=== PATIENT | male | born 1975 | race Caucasian/White ===

== ENCOUNTER 2022-12-08 10:30 | Emergency (ER) | payer MEDICAID, OTHER, SELFPAY ==
[2022-12-08 10:41] VITALS: BP 137/76; PULSE 61; RESP 15; TEMP 36.6; O2SAT 99; BMI 27.5
--- NOTE | 2022-12-08 11:18 | ED_ITS ---
HPI - General Adult General Chief complaint: Wound/Laceration Stated complaint: vein burst Time Seen by Provider: 12/08/22 10:45 Source: patient and RN notes reviewed Mode of arrival: ambulatory Limitations: no limitations History of Present Illness HPI narrative: This is a 47-year-old male, with a past medical history of hypertension, presenting to the emergency department for evaluation of left lower leg with r ecurrent bleeding without trauma. Patient states that he has had problems with this for many months. Patient states that this morning while he was bathing the vein ?burst open? and his leg started bleeding. He applied pressure to this area and the bleeding has since resolved. He states that he has been seen in the emergency department multiple times for the same issue however has been told that everything is okay and has been discharged home and the bleeding reoccurs. Patient has been seen by a vascular surgeon for ?bumps on his legs, denies having problems with varicose veins to his knowledge. Denies any fevers, chills. Denies lightheadedness, dizziness, chest pain or shortness of breath. Denies taking any medications at home to treat his current symptoms. No other complaints or concerns at this time. complaint: Leg wound Onset (ago): hour(s) Location: lower extremity Radiation: non-radiation Severity: mild Pain Consistency: constant Relieving factors: none Exacerbating factors: none Associated symptoms: denies other symptoms Treatments prior to arrival: none Related Data Allergies Allergy/AdvReac Type Severity Reaction Status Date / Time No Known Allergies Allergy Verified 12/08/22 10:40 Review of Systems Review of Systems: Yes all other systems are reviewed and are negative PMFSH Social History Social History Advance Directives: No Advance Directives Information Provided: No Physical Exam ED Vital Signs: Vital Signs - 24 hr 12/08/22 10:41 Temperature 98 F Pulse Rate 61 Respiratory Rate 15 Blood Pressure 137/76 Pulse Oximetry 99 Oxygen Delivery Method Room Air BMI result Body Mass Index 27.5 Const Other: General: Awake, alert, and oriented X3. No acute distress. HEENT: Normal inspection CVS: Normal heart rate and rhythm. Pulses normal. Respiratory: No respiratory distress Skin: Warm, dry, no rashes noted to exposed skin. Normal skin color. Normal skin turgor. Extremities: Left anterior boland with 1 mm eschar noted overlying varicose vein. Area is nontender, no active bleeding or drainage. No surrounding erythema or edema. Scattered multiple varicose veins noted to lower extremities. Neuro: Oriented X 3. No motor deficit. No sensory deficit. Course Reevaluation(s) Reevaluation #1: Closed wound using Dermabond and Steri-Strips. Patient given referral to vascular surgeon. Time: 12:15 Medical Decision Making Medical Decision Making MDM Narrative: 47-year-old male presenting to the emergency department for complaints of rupturing varicose veins for many months. On arrival, wound is not bleeding, ulceration noted, with varicose vein surrounding region. Reinforce skin with Dermabond and Steri-Strips after cleansing with Betadine and saline. Patient updated tetanus department today. Given good wound care instructions, advised to call vascular surgeon today for follow-up. Patient understands and agrees with plan. Patient stable for discharge. Differential Diagnosis Differential Diagnoses: The differential diagnosis associated with the presentation includes Varicose veins, laceration, contusion, abrasion, insect bite Discharge Plan Discharge Clinical Impression: Varicose vein of leg Patient Disposition: Home, Self-Care Instructions: Skin Adhesive Care (ED) Additional Instructions: You have varicose veins. One of these varicose veins was scraped causing you to bleed today. We closed this wound using skin adhesive and Steri-Strips. Do not pick at wound or liquid bandage or Steri-Strips. This will fall off on its own. We also gave you your tetanus shot today. Please watch for any signs of infection including but not limited to fevers, chills, increased redness or swelling. I am also referring you to a vascular surgeon. Call today to make an appointment. Any new or worsening symptoms occur please return for re-evaluation. Tienes venas varicosas. Shameka de estas venas varicosas fue raspada y te hizo sangrar hoy. Cerramos esta herida con adhesivo cut?sridhar y Steri-Strips. No toque la herida, el vendaje l?quido o las Steri-Strips. [place] se caer? solo. Tambi?n le dimos heart vacuna contra el t?tanos hoy. Est? atento a cualquier signo de infecci?n, incluidos, entre otros, fiebre, escalofr?os, aumento del enrojecimiento o hinchaz?n. Tambi?n lo estoy refiriendo a un cirujano vascular. Llame hoy para hacer shameka sammy. Si se presentan s?ntomas nuevos o que empeoran, regrese para shameka reevaluaci?n. Referrals: [facility] Vascular Services [Provider Group]
[2022-12-08] MEDS: Diphth,Pertus(ACell),Tet Adult 0.5 ML SYRINGE IM (12:30)
[2022-12-08 12:38] VITALS: BP 125/97; PULSE 54; RESP 16; O2SAT 100
== END 2022-12-08 12:41 | disposition home or self-care (01) ==
PROVIDERS: Emergency Provider Emergency Medicine
DX: I83.892 Varicose veins of left lower extremity with other complications (principal); M79.662 Pain in left lower leg
CPT/HCPCS: 12001; 90471; 90715; 99284

== ENCOUNTER 2023-01-04 23:11 | Emergency (ER) | payer MEDICAID, OTHER, SELFPAY ==
[2023-01-04 23:56] VITALS: BP 129/78; PULSE 74; RESP 16; TEMP 37.1; O2SAT 97; BMI 26.1
[2023-01-05 00:26] LABS: Appearance Urine Clear; Color Urine Yellow; Glucose Urine UA Negative (Negative); Leukocyte Esterase Urine Negative (Negative); Nitrite Urine Negative (Negative); PH 5.5 (5.0-9.0); Specific Gravity - Urine >= 1.030 (1.005-1.025); Urine Blood Negative (Negative); Urine Ketones Negative (Negative); Urine Protein Negative (Neg-Trace)
[2023-01-05 00:37] LABS: MANUAL DIFF FLAG NO
[2023-01-05 00:39] LABS: Basophils Percent Auto 0.4 % (0-2); Eosinophils Absolute Auto 0.5 X10*3/uL (0.0-0.4); Eosinophils Percent Auto 6.4 % (0-4); Hematocrit 37.8 % (42.0-52.0); Hemoglobin 12.5 g/dl (14.0-18.0); Imm Gran Abs Auto 0.02 X10*3/uL (0.00-0.03); Imm Gran Pct Auto 0.3 % (0.0-0.4); Lymphocytes Absolute Auto 1.7 X10*3/uL (1.2-4.9); Lymphocytes Percent Auto 23.8 % (20-40); Mean Corpuscular HGB Conc 33.1 g/dl (31.0-36.0); Mean Corpuscular Hemoglobin 27.6 pg (27.0-33.0); Mean Corpuscular Volume 83.4 fL (80.0-98.0); Mean Platelet Volume 12.6 fL (9.4-12.4); Monocytes Absolute Auto 0.6 X10*3/uL (0.1-1.2); Monocytes Percent Auto 7.7 % (2-11); Neutrophils Absolute Auto 4.5 x10*3/uL (2.0-8.3); Neutrophils Percent Auto 61.4 % (45-73); Platelet Count 182 X10*3/uL (160-400); Red Blood Count 4.53 X10*6/uL (4.60-5.80); Red Cell Distribution Width 12.6 % (11.0-16.0); White Blood Count 7.2 X10*3/uL (4.8-10.8)
[2023-01-05 00:40] VITALS: BP 133/76; PULSE 77; RESP 18; TEMP 36.9; O2SAT 99
[2023-01-05 00:53] LABS: Anion Gap 13 (12-20); Blood Urea Nitrogen 19 mg/dL (9-16); Calcium 9.4 mg/dL (8.4-10.2); Carbon Dioxide 27 mmol/L (22-29); Chloride 106 mmol/L (96-108); Creatinine Clr Calc Pharmacy 93.6; Estimated Glomerular Filt Rate > 60; Glucose Random 106 mg/dL (60-115); Potassium 4.1 mmol/L (3.3-5.1); Sodium 142 mmol/L (135-145)
--- OUTSIDE RECORDS SUMMARY | 2023-01-05 01:00 | XMS_ITS | Continuity of Care Document ---
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 Refills 2, Maintenance, surgical, calf length 20-30 mm Hg Dx: Venous insufficiency, 09/24/13 14:00:26, Compound Start Date: 09/24/13 Status: Ordered Problem List Condition Effective Dates Status Health Status Inform ant Varicose veins(Confirmed) Active Results Radiology Reports * Exam Date Time Procedure Performing Provider Status 04/11/21 6:39 PM Chest Portable Preston Brown; Shreya (Verified) Notes: (Chest Portable) Reason For Exam: Cough RESULT: Chest Portable Chest Portable Hx of Present Illness: Pt was at work when he bagan feeling weak, SOB and had palpitations. On EMS arrival, pt was found to be in an SVT in the 200's. Received 6mg adenosine w good effect. Pt now reports weakness and SOB.; Reason: Cough; Clinical Question(s): Pneumonia COMPARISON: None. FINDINGS: LINES AND TUBES: None. LUNGS AND PLEURA: Clear lungs. Mild pulmonary vascular congestion. No pleural effusion. No pneumothorax. HEART, MEDIASTINUM AND SOPHY: Heart is normal in size. Normal upper mediastinal and hilar contour. BONES AND SOFT TISSUES: No acute abnormality. IMPRESSION: Mild pulmonary vascular congestion. No overt edema. WSN: [id number] Ordering Physician: Lucio Abreu Dictated By: Dov Johnson MD Dictated Date/Time: 04/11/21 6:41 pm Reviewed By: Dov Johnson MD Signed By: Dov Johnson MD Signed Date/Time: 04/11/21 6:41 pm Transcribed By: NEGRITO Transcribed Date/Time: 04/11/21 6:40 pm Vital Signs Most recent to oldest [Reference Range]: 1 2 3 Oxygen Saturation [94-100 %] 99 % (04/11/21 9:15 PM) 98 % (04/11/21 7:36 PM) 100 % (04/11/21 6:11 PM) Pulse Rate [55-90 bpm] 73 bpm (04/11/21 9:15 PM) 84 bpm (04/11/21 7:36 PM) 97 bpm *H* (04/11/21 6:11 PM) Blood Pressure [90-138/55-84 mm Hg] 126/79mm Hg (04/11/21 9:15 PM) 135/77mm Hg (04/11/21 7:36 PM) 136/85mm Hg (04/11/21 6:11 PM) Respiratory Rate [16-30 br/min] 19 br/min (04/11/21 9:15 PM) 22 br/min (04/11/21 7:36 PM) 22 br/min (04/11/21 6:11 PM) Temperature [96.8-100.4 DegF] 98.6 DegF (04/11/21 5:50 PM) Mode of Delivery (Oxygen) Room air (04/11/21 6:11 PM) Room air (04/11/21 5:50 PM) Blood pressure sites Arm, left (04/11/21 6:11 PM) Arm, left (04/11/21 5:50 PM) Temperature Route Oral (04/11/21 5:50 PM)
--- NOTE | 2023-01-05 01:12 | ED.MALEGU ---
HPI - Male Genitourinary General Chief complaint: Urogenital-Male Stated complaint: Body aches, pain upper groin area Time Seen by Provider: 01/05/23 01:11 Source: patient Mode of arrival: ambulatory Limitations: no limitations History of Present Illness HPI Narrative: Patient coughing for last 1 week complained of small lump in the right groin area for last few days check for the COVID at home was negative no fever no chills also noted small rash on the penis last few days Related Data Previous Rx's Medication Instructions Recorded azithromycin 250 mg tablet 250 mg PO DAILY 4 days #4 tabs 01/05/23 (Zithromax Z-Jaime) benzonatate 200 mg capsule 200 mg PO TID PRN cough #30 caps 01/05/23 Allergies Allergy/AdvReac Type Severity Reaction Status Date / Time No Known Allergies Allergy Verified 12/08/22 10:40 Review of Systems Review of Systems: Yes all other systems are reviewed and are negative PMFSH Social History Social History Alcohol intake: never Advance Directives: No Advance Directives Information Provided: Yes Physical Exam Vital Signs: Vital Signs: Last Vital Signs Temp 98.2 F 01/05/23 02:07 Pulse 62 01/05/23 02:07 Resp 18 01/05/23 02:07 BP 119/74 01/05/23 02:07 Pulse Ox 97 01/05/23 02:07 O2 Del Method Room Air 01/05/23 02:07 BMI result Body Mass Index 26.1 Appearance: Alert. Oriented X3. No acute distress. Eyes: PERRLA, No Nystagmus ENT: Pharynx normal. Oral Mucosa moist Neck: Normal inspection. Neck supple. CVS: Normal heart rate and rhythm. Pulses normal. Respiratory: No respiratory distress. Equal air entry bilateral, no wheezing/rales/rhonchi Abdomen: Soft and nontender. Bowel sounds are present, no mass palpable, no CVA tenderness small direct inguinal hernia is reducible nontender slight soft tissue swelling of the shaft of the penis? Contact dermatitis Skin: Skin warm and dry. Normal skin color. Normal skin turgor. Extremities: No lower extremity edema. No calf tenderness Neuro: Oriented X 3. Medications Administered Discontinued Medications Generic Name Dose Route Start Last Admin Trade Name Freq PRN Reason Stop Dose Admin Benzonatate 200 mg 01/05/23 01:41 01/05/23 02:12 Benzonatate 100 Mg Capsule PO 01/05/23 01:42 200 mg ONCE ONE Administration Medical Decision Making Medical Decision Making [facility] Narrative: Patient has small direct inguinal hernia advised to follow with surgeon, labs are stable Lab Data [facility] Lab Attestation statement: I reviewed the patient's lab results. 01/05/23 00:33 01/05/23 00:33 Labs: Lab Results 01/05/23 01/05/23 01/05/23 Range/Units 00:10 00:33 00:33 WBC 7.2 (4.8-10.8) X10*3/uL RBC 4.53 L (4.60-5.80) X10*6/uL Hgb 12.5 L (14.0-18.0) g/dl Hct 37.8 L (42.0-52.0) % MCV 83.4 (80.0-98.0) fL MCH 27.6 (27.0-33.0) pg MCHC 33.1 (31.0-36.0) g/dl RDW 12.6 (11.0-16.0) % Plt Count 182 (160-400) X10*3/uL MPV 12.6 H (9.4-12.4) fL Immature Gran % (Auto) 0.3 (0.0-0.4) % Neut % (Auto) 61.4 (45-73) % Lymph % (Auto) 23.8 (20-40) % [place] % (Auto) 7.7 (2-11) % Eos % (Auto) 6.4 H (0-4) % Baso % (Auto) 0.4 (0-2) % Lymph # (Auto) 1.7 (1.2-4.9) X10*3/uL [place] # (Auto) 0.6 (0.1-1.2) X10*3/uL Eos # (Auto) 0.5 H (0.0-0.4) X10*3/uL Baso # (Auto) 0.0 (0.0-0.2) X10*3/uL Abs Immat Gran (auto) 0.02 (0.00-0.03) X10*3/uL Absolute Neuts (auto) 4.5 (2.0-8.3) x10*3/uL Absolute Nucleated RBC 0.000 (0.0-0.012) X10*3/uL Nucleated RBC % (auto) 0.0 (0.0-0.2) /100WBC Sodium 142 (135-145) mmol/L Potassium 4.1 (3.3-5.1) mmol/L Chloride 106 (96-108) mmol/L Carbon Dioxide 27 (22-29) mmol/L Anion Gap 13 (12-20) BUN 19 H (9-16) mg/dL Creatinine 0.83 (0.5-1.4) mg/dL Estim Creat Clear Calc 93.6 Estimated GFR > 60 Random Glucose 106 (60-115) mg/dL Calcium 9.4 (8.4-10.2) mg/dL Urine Color Yellow Urine Appearance Clear Urine pH 5.5 (5.0-9.0) Ur Specific [place] >= 1.030 H (1.005-1.025) Urine Protein Negative (Neg-Trace) mg/dL Urine Glucose (UA) Negative (Negative) mg/dL Urine Ketones Negative (Negative) mg/dL Urine Blood Negative (Negative) Urine Nitrite Negative (Negative) Ur Leukocyte Esterase Negative (Negative) COVID-19 (BENOIT) (Negative) COVID-19 Clin Com Influenza Type A (FRANCY) (Negative) Influenza Type B (FRANCY) (Negative) Influenza A & B Note S. pyogenes GrpA FRANCY (Negative) 01/05/23 01/05/23 01/05/23 Range/Units 01:57 01:57 01:57 WBC (4.8-10.8) X10*3/uL RBC (4.60-5.80) X10*6/uL Hgb (14.0-18.0) g/dl Hct (42.0-52.0) % MCV (80.0-98.0) fL MCH (27.0-33.0) pg MCHC (31.0-36.0) g/dl RDW (11.0-16.0) % Plt Count (160-400) X10*3/uL MPV (9.4-12.4) fL Immature Gran % (Auto) (0.0-0.4) % Neut % (Auto) (45-73) % Lymph % (Auto) (20-40) % [place] % (Auto) (2-11) % Eos % (Auto) (0-4) % Baso % (Auto) (0-2) % Lymph # (Auto) (1.2-4.9) X10*3/uL [place] # (Auto) (0.1-1.2) X10*3/uL Eos # (Auto) (0.0-0.4) X10*3/uL Baso # (Auto) (0.0-0.2) X10*3/uL Abs Immat Gran (auto) (0.00-0.03) X10*3/uL Absolute Neuts (auto) (2.0-8.3) x10*3/uL Absolute Nucleated RBC (0.0-0.012) X10*3/uL Nucleated RBC % (auto) (0.0-0.2) /100WBC Sodium (135-145) mmol/L Potassium (3.3-5.1) mmol/L Chloride (96-108) mmol/L Carbon Dioxide (22-29) mmol/L Anion Gap (12-20) BUN (9-16) mg/dL Creatinine (0.5-1.4) mg/dL Estim Creat Clear Calc Estimated GFR Random Glucose (60-115) mg/dL Calcium (8.4-10.2) mg/dL Urine Color Urine Appearance Urine pH (5.0-9.0) Ur Specific [place] (1.005-1.025) Urine Protein (Neg-Trace) mg/dL Urine Glucose (UA) (Negative) mg/dL Urine Ketones (Negative) mg/dL Urine Blood (Negative) Urine Nitrite (Negative) Ur Leukocyte Esterase (Negative) COVID-19 (BENOIT) Negative (Negative) COVID-19 Clin Com See Note Influenza Type A (FRANCY) Negative (Negative) Influenza Type B (FRANCY) Negative (Negative) Influenza A & B Note See Note S. pyogenes GrpA FRANCY Negative (Negative) Discharge Plan Discharge Clinical Impression: Direct inguinal hernia of right side, Bronchitis Patient Disposition: Home, Self-Care Instructions: Acute Bronchitis (ED), Inguinal Hernia (ED) Additional Instructions: Avoid straining/weightlifting Take antibiotic and cough drops for cough Follow-up with surgeon Prescriptions: New azithromycin [Zithromax Z-Jaime] 250 mg tablet 250 mg PO DAILY 4 Days Qty: 4 0RF Rx Instructions: start on day 2 of therapy benzonatate 200 mg capsule 200 mg PO TID PRN (Reason: cough) Qty: 30 0RF Referrals: Gustavo Nguyen MD [Physician] - 2 weeks
[2023-01-05 02:07] VITALS: BP 119/74; PULSE 62; RESP 18; TEMP 36.8; O2SAT 97
[2023-01-05 02:12] LABS: IDNOW Serial# 08D9AD1C; Strep A Nucleic Acid Negative (Negative)
[2023-01-05] MEDS: Benzonatate 100 MG CAPSULE 200 MG PO (02:12)
[2023-01-05 02:20] LABS: COVID-19 Test Negative (Negative); IDNOW Serial# 6674DD1D; IDNOW Serial# BCCEAD1C; Influenza A Negative (Negative); Influenza B2 Negative (Negative)
[2023-01-05] MEDS: Azithromycin 500 MG TABLET PO (02:43)
[2023-01-05 09:31] LABS: CT PCR NOT DETECTED (Not Detect.); NG PCR NOT DETECTED (Not Detect.)
== END 2023-01-05 02:50 | disposition home or self-care (01) ==
PROVIDERS: Emergency Provider Internal Medicine
DX: K40.90 Unilateral inguinal hernia, without obstruction or gangrene, not specified as recurrent (principal); J40 Bronchitis, not specified as acute or chronic; M79.10 Myalgia, unspecified site; R10.2 Pelvic and perineal pain; Z20.822 Contact with and (suspected) exposure to COVID-19; Z20.828 Contact with and (suspected) exposure to other viral communicable diseases; Z79.899 Other long term (current) drug therapy
CPT/HCPCS: 0353U; 36415; 80048; 81003; 85025; 87502; 87635; 87651; 99283; 99284

== ENCOUNTER 2023-01-27 10:28 | Outpatient (AMB) | payer OTHER, MEDICAID, SELFPAY ==
[2023-01-27 10:28] VITALS: BMI 26.0
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
== END 2023-01-27 11:00 | disposition home or self-care (01) ==
PROVIDERS: Visit Provider Surgery Vascular Surgery
DX: I83.12 Varicose veins of left lower extremity with inflammation (principal)
CPT/HCPCS: 99213

== ENCOUNTER → 2023-01-27 10:28 | Outpatient (BNVA) | payer OTHER, SELFPAY | PROVIDERS: Visit Provider Surgery Vascular Surgery | DX: R10.31 Right lower quadrant pain (principal); I83.12 Varicose veins of left lower extremity with inflammation | CPT/HCPCS: 99202; 99212 ==

== ENCOUNTER 2023-01-27 12:46 | Outpatient (AMB) | payer OTHER, MEDICAID, SELFPAY ==
[2023-01-27 13:03] VITALS: BP 131/72; PULSE 56; BMI 25.8
--- NOTE | 2023-01-27 13:03 | MHC.OFFVIS ---
Intake Vital Signs 01/27/23 13:03 Height 5 ft 5 in Weight 155 lb BMI 25.8 BP 131/72 Blood Pressure Location Rt brachial Position Sitting Pulse 56 Intake Visit Reasons: inguinal hernia Intake Note: This patient presents for [facility] emergency department follow-up for right inguinal hernia. Patient c/o; reports having a bulge when went to [facility] ER on 01/05/23, denies problems with bowel movements, denies pain at this time. Environmental Marketer Required: Yes Environmental Marketer Language: Compositor Apprentice Name: Ann Information Interpreted: non-clinical & clinical Accompanied by: Other Relationship Allergies No Known Allergies Allergy (Verified 01/27/23 13:09) Medication List - Last Reconciled 01/27/23 by Gustavo Nguyen MD azithromycin (Zithromax Z-Jaime) 250 mg PO DAILY 4 days benzonatate 200 mg PO TID PRN metoprolol succinate ER 25 mg PO DAILY HPI inguinal hernia HPI Details 47-year-old male referred for a possible inguinal hernia. He says that he went to the ER about 3 weeks ago because of pain on the right groin. He says that the area felt swollen at that time He was told that he may have a hernia so he was referred to me He says that he has had no pain since that time for 3 weeks now. He denies any palpable mass. He denies any other complaints. [facility] Medical History (Updated 01/27/23 @ 13:38 by Gustavo Nguyen MD) Right groin pain Tachycardia Social History Alcohol intake: never Review of Systems Const Denies chills and Denies fever(s) Card Denies chest pain, Denies dyspnea and Denies dyspnea on exertion Resp Denies cough, Denies dyspnea and Denies dyspnea on exertion GI Denies hematochezia and Denies change in bowel habits Denies hematuria and Denies difficulty urinating Musc Denies back pain and Denies limited range of motion Neuro Denies focal weakness and Denies convulsions Psych Denies depression and Denies mood swings Physical Exam Vital Signs: Last Vital Signs Pulse 56 01/27/23 13:03 BP 131/72 01/27/23 13:03 BMI result Body Mass Index 25.8 Const General: comfortable and no acute distress Orientation/consciousness: patient oriented x3 Neck Neck: Yes no lymphadenopathy Resp Auscultation: clear to auscultation bilaterally Cardio Rhythm: regular rhythm GI Other: No palpable inguinal hernia even with various Valsalva maneuvers, no tenderness, no palpable mass Palpation (GI): Soft to palpation, nontender and no guarding Neuro General: patient oriented x3 Assessment & Plan Assessment & Plan (1) Right groin pain: Code(s): R10.31 - Right lower quadrant pain Plan: He went to the ER 3 weeks ago because of right groin pain. He was sent to me for a question of a right groin hernia. Current exam does not reveal any hernia even with various Valsalva maneuvers. Furthermore, he has had no pain or tenderness on the area I told him that at this time, there is no suggestion of an inguinal hernia. I did advise him to continue admitting the area for any palpable mass or pain. He can come back to the office on a p.r.n. basis. He along with his were comfortable with the plan. Coding Level of Care Code New Pt Level 3 (54262) Diagnoses Right groin pain R10.31
== END 2023-01-27 13:36 | disposition home or self-care (01) ==
PROVIDERS: Visit Provider Surgery
DX: R10.31 Right lower quadrant pain (principal)
CPT/HCPCS: 99203

== ENCOUNTER 2023-02-10 10:24 | Outpatient (REF) | payer OTHER, SELFPAY ==
--- NOTE | ~2023-02-10 | US_ITS ---
EXAMINATION: RIGHT and LEFT LOWER EXTREMITY VENOUS ULTRASOUND (Reflux Exam) CLINICAL INDICATION: leg pain and varicose veins. COMPARISON: None. TECHNIQUE: Color flow triplex imaging and compression Doppler was performed to evaluate both the deep and the superficial systems bilaterally. To evaluate the superficial system, the examination was performed in the upright position. Color-flow Doppler ultrasound and compression ultrasound were utilized. In addition, maneuvers were utilized to demonstrate reflux. FINDINGS: 1. DEEP VENOUS ULTRASOUND OF THE RIGHT LOWER EXTREMITY: Respiratory variation, normal compression and augmented flow are noted in the right common femoral vein as well as the right popliteal vein and there is no evidence of deep venous thrombosis at these locations. There is deep venous reflux in the mid superficial femoral vein measuring 1.6 seconds. There is no evidence of reflux in the deep system in either the common femoral vein or the popliteal vein. There is no evidence of a Lay's cyst. 2. SUPERFICIAL ULTRASOUND WITH DOPPLER OF RIGHT LOWER EXTREMITY: The right great saphenous vein at the saphenofemoral junction measures 8 mm, at the mid thigh 6 mm, [id number] 7 mm, nijrj-[id number] 1.4 mm, at mid calf 4 mm and at the ankle measures 3 mm. There is extensive reflux demonstrated in the right great saphenous vein at all levels measuring maximum 2.7 seconds in the proximal thigh. The right small saphenous vein measures 1-2 mm and shows no reflux. There is a 2 mm lead simulation modeling engineer in the proximal calf that demonstrates 2.2 seconds reflux. There are 2 perforators in the distal calf measuring 1 and 4 mm that do not demonstrate reflux. There is a varicosity in the mid calf communicating with the greater saphenous vein versus medial branch of the greater saphenous vein that measures 4 mm and demonstrates 2.1 seconds reflux. 3. DEEP VENOUS ULTRASOUND OF THE LEFT LOWER EXTREMITY: Respiratory variation, normal compression and augmented flow are noted in the left common femoral vein as well as the left popliteal vein and there is no evidence of deep venous thrombosis at these locations. There is deep venous reflux in the mid superficial femoral vein measuring greater than 1.9 seconds and popliteal vein measuring 1.7 seconds There is no evidence of reflux in the deep system in the common femoral vein. There is no evidence of a Lay's cyst. 4. SUPERFICIAL ULTRASOUND WITH DOPPLER OF LEFT LOWER EXTREMITY: Left great saphenous vein at the saphenofemoral junction measures 5 mm, at the mid thigh 3 mm, [id number]-[id number] 2 mm, at mid calf 4 mm and at the ankle measures 2 mm. The right greater saphenous vein from the mid thigh to knee not seen. There is reflux seen in the greater saphenous vein below the knee, in the calf and ankle measuring maximum greater than 2.9 seconds below the knee. The left small saphenous vein measures 1-3 mm and shows no reflux. There are 2 perforators in the thigh measuring 3 and 4 mm and 2 perforators in the calf measuring 2 and 4 mm without reflux. There are 4 varicosities in the calf measuring 3 to 4 mm that demonstrate reflux, maximum greater than 2.8 seconds. US/US venous duplex LE BI IMPRESSION: Right: No DVT. Deep venous reflux in the mid superficial femoral vein. Dilated right greater saphenous vein with diffuse reflux. Reflux in a lead simulation modeling engineer and varicosity in the calf. Left: No DVT. Deep venous reflux in the superficial femoral and popliteal veins. Greater saphenous vein from the mid thigh to knee not seen. Left greater saphenous vein reflux below the knee. Reflux in varicosities in the calf.
== END 2023-02-10 10:25 | disposition home or self-care (01) ==
LOC: HO.US 10:24
PROVIDERS: Visit Provider Surgery Vascular Surgery
DX: I83.12 Varicose veins of left lower extremity with inflammation (principal)
CPT/HCPCS: 93970

== ENCOUNTER 2023-03-01 08:06 | Outpatient (REF) | payer OTHER, SELFPAY ==
[2023-03-01 08:56] LABS: Alanine Aminotransferase 28 U/L (0-40); Albumin Level 4.5 g/dL (3.5-5.0); Alkaline Phosphatase 66 U/L (39-117); Aspartate Amino Transferase 27 U/L (5-37); Bilirubin Direct 0.1 mg/dL (0.0-0.5); Bilirubin Total 0.4 mg/dL (0.0-1.0); Cholesterol 182 mg/dL (<200); HDL Cholesterol 34 mg/dL (>40); LDL Cholesterol Calculated 102 mg/dL (<100); Total Protein 7.4 g/dL (6.5-8.0); Triglycerides 230 mg/dL (<150)
== END 2023-03-01 08:07 | disposition home or self-care (01) ==
LOC: HO.LAB 08:06
PROVIDERS: Visit Provider Internal Medicine Cardiovascular Disease
DX: E78.00 Pure hypercholesterolemia, unspecified (principal)
CPT/HCPCS: 36415; 80061; 80076

== ENCOUNTER 2023-03-10 15:11 | Outpatient (AMB) | payer OTHER, MEDICAID, SELFPAY ==
--- NOTE | 2023-03-10 15:13 | MHC.OFFVIS ---
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 He noted swollen and painful legs. Upon discussion with him it was discovered he actually had a left lower extremity venous ablation nearly 10 years ago at [facility]. He has been wearing compression since that time. More recently he has noticed more swelling and discomfort left more so than right. He now presents for follow-up with venous insufficiency testing [facility] Medical History Right groin pain Tachycardia Social History Alcohol intake: never Review of Systems Const Reports as per HPI ENT Reports no additional complaints Card Denies chest pain, Denies chest pain at rest and Denies chest pain with activity Resp Denies chest congestion and Denies cough GI Reports no additional complaints Musc Details: pain over varicosities, aching of lower extremities, swelling, cramping, heaviness and tiredness, itching Denies abnormal gait Skin/Breast Reports pruritus and Denies wounds Neuro Reports no additional complaints and Denies abnormal gait Psych Denies no additional complaints Physical Exam Vital Signs: BMI result Body Mass Index 25.8 Const General: cooperative, healthy appearing and comfortable Orientation/consciousness: oriented to person, oriented to place and oriented to time Neck Carotids: no bruits Chest Chest palpation & inspection: normal inspection of the chest and normal palpation of entire chest wall Resp Effort & Inspection: normal respiratory effort and able to speak in complete sentences Cardio Rate: regular rate Heart sounds: S1 normal heart sound present and S2 normal heart sound present Peripheral pulses: Peripheral pulses 2+ throughout GI Inspection: Yes normal to inspection Skin Other: +2 edema, large rope-like varicosities greater than 4 mm left pretibial open varicosity which has bled in the past CEAP Classification C4 - skin color changes Ep - Etiology Primary As - superficial veins P - reflux General skin exam: dry skin Neuro General: oriented to person, oriented to place and oriented to time Extrem Right lower extremity: full ROM, normal capillary refill and edema Left lower extremity: full ROM, normal capillary refill and edema Psych Mental Status: mental status grossly normal Results Reviewed Results Reviewed: Brief summary of venous insufficiency testing is as follows: right great saphenous vein: Positive right small saphenous vein: negative right accessory vein: none present left great saphenous vein: Positive left small saphenous vein: negative left accessory vein: none present Please note there is no evidence of any venous aneurysms or significant tortuosity Assessment & Plan Assessment & Plan (1) Varicose veins of left lower extremity with inflammation: Code(s): I83.12 - Varicose veins of left lower extremity with inflammation Plan: This patient has varicose veins with inflammation. They continue to be a source of discomfort for the patient. The patient has tried conservative treatment with compression, leg elevation and exercise program for over 3 months time. They have been compliant with all treatment. This has provided minimal relief for the patient. I do not anticipate this course of treatment will alter the underlying etiology. The patient has been scheduled for lower extremity venous treatment inclusive of --- left GSV Cyanoacralate ablation. Risks, benefits, and complications of this procedure has been discussed in detail with the patient including but not limited to bleeding, infection, and the development of a DVT. The patient has demonstrated a clear understanding and has consented. We will schedule the patient as soon as possible. Thank you for allowing us to participate in this patient's care. If there are any questions or concerns please do not hesitate to contact us. Coding Level of Care Code Est Pt Level 4 (23355) Diagnoses Varicose veins of left lower extremity with inflammation I83.12
[2023-03-10 15:15] VITALS: BMI 25.8
== END 2023-03-10 16:00 | disposition home or self-care (01) ==
PROVIDERS: Visit Provider Surgery Vascular Surgery
DX: I83.12 Varicose veins of left lower extremity with inflammation (principal)
CPT/HCPCS: 99214

== ENCOUNTER → 2023-03-10 15:11 | Outpatient (BNVA) | payer OTHER, SELFPAY | PROVIDERS: Visit Provider Surgery Vascular Surgery | DX: I83.12 Varicose veins of left lower extremity with inflammation (principal) | CPT/HCPCS: 99212 ==

== ENCOUNTER 2023-04-22 10:31 | Outpatient (AMB) | payer OTHER, MEDICAID, SELFPAY ==
--- NOTE | 2023-04-22 11:51 | MHC.OFFVIS ---
Intake Vital Signs 04/22/23 11:52 Height 5 ft 5 in Weight 155 lb BMI 25.8 Intake Visit Reasons: Left GSV Venaseal Accompanied by: Self / Same As Patient Allergies No Known Allergies Allergy (Verified 04/22/23 11:52) [facility] Medical History Right groin pain Tachycardia Social History Alcohol intake: never Physical Exam Vital Signs: BMI result Body Mass Index 25.8 Office Procedures Vascular Office Procedure Details Details: Diagnosis: Left Leg varicose veins with inflammation Procedure: Attempted Endovenous Ablation of the left Great Saphenous Vein Anesthesia: Local infiltration 10 cc, Estimated Blood Loss: min Specimen: none Duplex ultrasound was used to map out the insufficient saphenous vein, and access was determined and marked on the overlying skin. The depth and diameter of the vein(s) to be treated was documented. The patient was placed supine on the procedure table and the leg was prepped and draped using sterile technique. Ultasound guidance was again used to localize the access site. 1% lidocaine was injected as a local anesthetic in the subcutaneous tissues at the target location in the GSV in the lower leg. Using ultrasound guidance, access was gained at this location with the 19 gauge thin walled access needle and followed by introduction of a short guidewire, location confirmed with ultrasound. A small, 3 mm incision was made at the access site to allow for introduction and placement of the 7 Fr x7cm introducer/dilator. We were unable to advance the wire to further position. We reintroduced the sheath and we notice that he was not within the venous system. We turned our attention to a separate more distal location. In a similar fashion we were able to access the vein but unable to at advanced the sheath over wire any significant distance. At this point there was no other access sites noted. Procedure was terminated. Sterile dressings were applied. The drapes were removed and the patient cleaned and prepared for discharge. the patient was given written post-op instructions. All charges added?: Additional procedure code (CPT) needed Assessment & Plan Assessment & Plan (1) Varicose veins of left lower extremity with inflammation: Code(s): I83.12 - Varicose veins of left lower extremity with inflammation Plan: See procedure note Coding Level of Care Code Procedure Only Diagnoses Varicose veins of left lower extremity with inflammation I83.12
[2023-04-22 11:52] VITALS: BMI 25.8
== END 2023-04-22 13:51 | disposition home or self-care (01) ==
PROVIDERS: Visit Provider Surgery Vascular Surgery
DX: I83.12 Varicose veins of left lower extremity with inflammation (principal)
CPT/HCPCS: 36475

== ENCOUNTER → 2023-04-22 10:31 | Outpatient (BNVA) | payer OTHER, SELFPAY | PROVIDERS: Visit Provider Surgery Vascular Surgery | DX: I83.12 Varicose veins of left lower extremity with inflammation (principal) | CPT/HCPCS: 36475 ==

== ENCOUNTER 2023-05-05 10:43 | Outpatient (AMB) | payer OTHER, MEDICAID, SELFPAY ==
--- NOTE | 2023-05-05 10:44 | A.OFFVIS_ITS ---
Intake Intake Visit Reasons: 2 week follow up Left GSV Venaseal 04/22/23 Intake Note: Pt here for 2 week fallow up Left GSV Venaseal on 04/22/23 Pt states tht he was having issues walking after the procedure and he had a lot of bruising on inner upper thigh. Pt used ibuprephen 800 when having pain and says it helped a little Account Manager Sales Representative Required: Yes Account Manager Sales Representative Name: Hema Solorio Information Interpreted: non-clinical & clinical Accompanied by: Spouse Allergies No Known Allergies Allergy (Verified 05/05/23 10:48) HPI 2 week follow up Left GSV Venaseal 04/22/23 HPI Details Very complex 48-year-old gentleman presents for follow-up regarding venous insufficiency. Of note he has had left lower extremity ablation nearly 10 years ago. He did have a recurrence in the distal portion. We did attempt to try to close this but was unable to access. He now presents for routine follow-up [facility] Medical History Right groin pain Tachycardia Social History Alcohol intake: never Review of Systems Const Reports as per HPI ENT Reports no additional complaints Card Denies chest pain, Denies chest pain at rest and Denies chest pain with activity Resp Denies chest congestion and Denies cough GI Reports no additional complaints Musc Details: pain over varicosities, aching of lower extremities, swelling, cramping, heaviness and tiredness, itching Denies abnormal gait Skin/Breast Reports pruritus and Denies wounds Neuro Reports no additional complaints and Denies abnormal gait Psych Denies no additional complaints Physical Exam Const General: cooperative, healthy appearing and comfortable Orientation/consciousness: oriented to person, oriented to place and oriented to time Neck Carotids: no bruits Chest Chest palpation & inspection: normal inspection of the chest and normal palpation of entire chest wall Resp Effort & Inspection: normal respiratory effort and able to speak in complete sentences Cardio Rate: regular rate Heart sounds: S1 normal heart sound present and S2 normal heart sound present Peripheral pulses: Peripheral pulses 2+ throughout GI Inspection: Yes normal to inspection Skin Other: +2 edema, large rope-like varicosities greater than 4 mm CEAP Classification C4 - skin color changes Ep - Etiology Primary As - superficial veins P - reflux General skin exam: dry skin Neuro General: oriented to person, oriented to place and oriented to time Extrem Right lower extremity: full ROM, normal capillary refill and edema Left lower extremity: full ROM, normal capillary refill and edema Psych Mental Status: mental status grossly normal Results Reviewed Results Reviewed: Brief summary of venous insufficiency testing is as follows: right great saphenous vein: Positive right small saphenous vein: negative right accessory vein: none present left great saphenous vein: Focally positive only a calf left small saphenous vein: negative left accessory vein: none present Please note there is no evidence of any venous aneurysms or significant tortuosity Assessment & Plan Assessment & Plan (1) Varicose veins of right lower extremity with inflammation: Code(s): I83.11 - Varicose veins of right lower extremity with inflammation Plan: This patient has varicose veins with inflammation. They continue to be a source of discomfort for the patient. The patient has tried conservative treatment with compression, leg elevation and exercise program for over 3 months time. They have been compliant with all treatment. This has provided minimal relief for the patient. I do not anticipate this course of treatment will alter the underlying etiology. The patient has been scheduled for lower extremity venous treatment inclusive of --- right great saphenous vein radiofrequency ablation. Risks, benefits, and complications of this procedure has been discussed in detail with the patient including but not limited to bleeding, infection, and the development of a DVT. The patient has demonstrated a clear understanding and has consented. We will schedule the patient as soon as possible. Thank you for allowing us to participate in this patient's care. If there are any questions or concerns please do not hesitate to contact us. (2) Varicose veins of left lower extremity with inflammation: Comment: 04/22/2023 - attempted left lower extremity ablation Code(s): I83.12 - Varicose veins of left lower extremity with inflammation Plan: Will manage left leg conservatively including compression elevation and exercise Coding Level of Care Code Est Pt Level 4 (81277) Diagnoses Varicose veins of right lower extremity with inflammation I83.11 Varicose veins of left lower extremity with inflammation I83.12
== END 2023-05-05 11:26 | disposition home or self-care (01) ==
PROVIDERS: Visit Provider Surgery Vascular Surgery
DX: I83.11 Varicose veins of right lower extremity with inflammation (principal); I83.12 Varicose veins of left lower extremity with inflammation
CPT/HCPCS: 99214

== ENCOUNTER → 2023-05-05 10:43 | Outpatient (BNVA) | payer OTHER, SELFPAY | PROVIDERS: Visit Provider Surgery Vascular Surgery | DX: I83.11 Varicose veins of right lower extremity with inflammation (principal); I83.12 Varicose veins of left lower extremity with inflammation | CPT/HCPCS: 99212 ==

== ENCOUNTER 2023-09-06 10:21 | Emergency (ER) | payer OTHER, SELFPAY ==
[2023-09-06 10:37] VITALS: BP 127/68; PULSE 62; RESP 18; TEMP 36.7; O2SAT 99; BMI 27.1
--- NOTE | 2023-09-06 11:41 | ED.GENADULT ---
HPI - General Adult General Chief complaint: General Medical Stated complaint: Leaky vein L leg Time Seen by Provider: 09/06/23 11:11 Source: patient Mode of arrival: ambulatory Limitations: no limitations and language barrier History of Present Illness HPI narrative: [age] year old male with a past medical history varicose vein issues presents to the emergency department, this has , for concerns for bleeding at the left lower extremity. Patient's reports that a vein ?popped? causing a large volume of bleeding. She reports he has had this happened to him in the past and the bleeding was cauterized and they presented to vein specialist. She reports that the specialist trying to ?block? his vein but was unsuccessful. He denies any anticoagulant use, paresthesias, or weakness. Pertinent positives and negatives discussed in HPI Related Data Home Medications ?Medication ?Instructions ?Recorded ?Confirmed metoprolol succinate 25 mg 25 mg PO DAILY 01/27/23 01/27/23 tablet,extended release 24 hr Previous Rx's ?Medication ?Instructions ?Recorded azithromycin 250 mg tablet 250 mg PO DAILY 4 days #4 tabs 01/05/23 (Zithromax Z-Jaime) benzonatate 200 mg capsule 200 mg PO TID PRN cough #30 caps 01/05/23 Allergies Allergy/AdvReac Type Severity Reaction Status Date / Time No Known Allergies Allergy Verified 09/06/23 10:48 Review of Systems Review of Systems: Yes all other systems are reviewed and are negative [facility] Past Medical History Medical History Right groin pain Tachycardia Social History Social History Alcohol intake: never Advance Directives: No Advance Directives Information Provided: Yes Physical Exam ED Vital Signs: Vital Signs - 24 hr 09/06/23 10:37 Temperature 98.1 F Pulse Rate 62 Respiratory Rate 18 Blood Pressure 127/68 Pulse Oximetry 99 Oxygen Delivery Method Room Air BMI result Body Mass Index 27.1 Nursing notes and vital signs reviewed. GENERAL APPEARANCE: A&0 x 4, generally well appearing, no acute distress HENMT: Normal to inspection, atraumatic, face symmetrical. Normal external ears, nose, and oropharynx clear. EYE: PERRLA, EOM intact, structures appear normal NECK: Supple without stiffness or restricted ROM. HEART: Normal rate and regular rhythm, normal S1/S2, no M/R/G LUNGS: LS CTA, moving air well. Able to speak in complete sentences. No crackles, wheezes, or rhonchi auscultated BACK: No CVAT, no obvious deformity EXTREMITIES: Moving all extremities without difficulty. Normal capillary refill. Bleeding noted from superficial vein of anterior left lower leg NEUROLOGICAL: Alert and oriented, moving all 4 extremities with equal strength. CN not formally tested but appearing grossly intact. Observed to ambulate with normal gait. Cognition normal SKIN: Warm and dry without any lesions, rash, or visible sores Medications Administered Discontinued Medications Generic Name Dose Route Start Last Admin Trade Name Freq PRN Reason Stop Dose Admin Silver Nitrate 2 appl 09/06/23 11:56 09/06/23 12:06 Silver Nitrate Applicator Stick..Ea. TOPICAL 09/06/23 11:57 2 appl ONCE ONE Administration Medical Decision Making Medical Decision Making MDM Narrative: Old records reviewed for previous imaging, lab studies, ECGs, and notes. Patient was assessed the emergency department with no acute distress or toxicity noted. Bleeding varicose vein cauterized with silver nitrate skin adhesive applied. Patient educated to follow-up with primary care provider in addition to vascular specialist with contact information provided. Patient is safe for discharge at this time with plan for [id number] Tylenol and/or NSAID such as ibuprofen or naproxen for fever/discomfort with dosing as per packaging. HPI, PE, diagnostics, and plan discussed with patient and family with no unanswered questions at this time. Strict return precautions given to return to the emergency department with new, worsening, or concerning emergent symptoms. Recommended to follow-up with there primary care provider in 24-48 hours for further treatment and management. Differential Diagnosis Differential Diagnoses: The differential diagnosis associated with the presentation includes But not limited to laceration, abrasion, ruptured varicose vein, hemorrhage, sepsis, malignancy Independent Historian Clinical information obtained from an independent historian. History obtained from or confirmed by: Spouse Discharge Plan Discharge Clinical Impression: Varicose veins of left lower extremity with inflammation Patient Disposition: Home, Self-Care Instructions: Peripheral Vascular Disease (ED) Prescriptions: No Action azithromycin [Zithromax Z-Jaime] 250 mg tablet 250 mg PO DAILY 4 Days Qty: 4 0RF Rx Instructions: start on day 2 of therapy benzonatate 200 mg capsule 200 mg PO TID PRN (Reason: cough) Qty: 30 0RF metoprolol succinate 25 mg tablet extended release 24 hr 25 mg PO DAILY [place] [facility] [place] [facility] [place] [facility] [place] [facility] [place] [facility] [place] Group] Antonette Warren MD [Physician] - Print Language: Martiniquais
[2023-09-06] MEDS: Silver Nitrate Applicator STICK..EA. 2 APPL TOPICAL (12:06)
[2023-09-06 12:37] VITALS: BP 111/71; PULSE 55; RESP 16; TEMP 36.7; O2SAT 99
== END 2023-09-06 12:57 | disposition home or self-care (01) ==
PROVIDERS: Emergency Provider Emergency Medicine
DX: I83.12 Varicose veins of left lower extremity with inflammation (principal); I83.892 Varicose veins of left lower extremity with other complications
CPT/HCPCS: 17250; 99282; 99283

== ENCOUNTER 2023-09-15 09:55 | Outpatient (AMB) | payer OTHER, SELFPAY ==
--- NOTE | 2023-09-15 09:56 | A.OFFVIS_ITS ---
Vital Signs 09/15/23 09:57 Height 5 ft 5 in Weight 162 lb BMI 27.0 Intake Visit Reasons: Follow Up ED , Vein bleed Intake Note: Follow up s/p ED visit for Left LE VV w/ bleeding Acquisitions Librarian Required: Yes Acquisitions Librarian Language: Basic Combatant Swimmer Name: Alesha [id number] Information Interpreted: clinical only Accompanied by: Spouse Allergies No Known Allergies Allergy (Verified 09/15/23 10:03) HPI HPI Follow Up ED , Vein bleed: Details: Very pleasant 48-year-old gentleman presents for follow-up regarding venous disease. He has recurrent bleeding episodes from a pretibial ulcer on the left leg. He had an attempted left great saphenous vein Cyanoacralate ablation back in April of 2023 unfortunately it was unsuccessful at that time. He is developed this ulcer which has been recurrently bleeding. He now presents to us for follow-up evaluation PFSH Medical History Right groin pain Tachycardia Social History Alcohol intake: never Review of Systems Const Reports as per HPI ENT Reports no additional complaints Card Denies chest pain, Denies chest pain at rest and Denies chest pain with activity Resp Denies chest congestion and Denies cough GI Reports no additional complaints Musc Details: pain over varicosities, aching of lower extremities, swelling, cramping, heaviness and tiredness, itching Denies abnormal gait Skin/Breast Reports pruritus and Denies wounds Neuro Reports no additional complaints and Denies abnormal gait Psych Denies no additional complaints Physical Exam Vital Signs: BMI result Body Mass Index 27.0 Const General: cooperative, healthy appearing and comfortable Orientation/consciousness: oriented to person, oriented to place and oriented to time Neck Carotids: no bruits Chest Chest palpation & inspection: normal inspection of the chest and normal palpation of entire chest wall Resp Effort & Inspection: normal respiratory effort and able to speak in complete sentences Cardio Rate: regular rate Heart sounds: S1 normal heart sound present and S2 normal heart sound present Peripheral pulses: Peripheral pulses 2+ throughout GI Inspection: Yes normal to inspection Skin Other: +2 edema, large rope-like varicosities greater than 4 mm CEAP Classification C6 open ulcer - site of bleeding Ep - Etiology Primary As - superficial veins P - reflux General skin exam: dry skin Neuro General: oriented to person, oriented to place and oriented to time Extrem Right lower extremity: full ROM, normal capillary refill and edema Left lower extremity: full ROM, normal capillary refill and edema Psych Mental Status: mental status grossly normal Results Reviewed Results Reviewed: Brief summary of venous insufficiency testing is as follows: right great saphenous vein: negative right small saphenous vein: negative right accessory vein: none present left great saphenous vein: Positive left small saphenous vein: negative left accessory vein: none present Please note there is no evidence of any venous aneurysms or significant tortuosity Assessment & Plan Assessment & Plan (1) Varicose veins of left lower extremity with inflammation: Comment: 04/22/2023 - attempted left lower extremity ablation Code(s): I83.12 - Varicose veins of left lower extremity with inflammation Category: Medical Plan: This patient has varicose veins with inflammation. They continue to be a source of discomfort for the patient. The patient has tried conservative treatment with compression, leg elevation and exercise program for over 3 months time. They have been compliant with all treatment. This has provided minimal relief for the patient. I do not anticipate this course of treatment will alter the underlying etiology. The patient has been scheduled for lower extremity venous treatment inclusive of --- left great saphenous vein Cyanoacralate ablation. Risks, benefits, and complications of this procedure has been discussed in detail with the patient including but not limited to bleeding, infection, and the development of a DVT. The patient has demonstrated a clear understanding and has consented. We will schedule the patient as soon as possible. Thank you for allowing us to participate in this patient's care. If there are any questions or concerns please do not hesitate to contact us. Coding Level of Care Code Est Pt Level 4 (29613) Diagnoses Varicose veins of left lower extremity with inflammation I83.12
[2023-09-15 09:57] VITALS: BMI 27.0
== END 2023-09-15 10:40 | disposition home or self-care (01) ==
PROVIDERS: Visit Provider Surgery Vascular Surgery
DX: I83.12 Varicose veins of left lower extremity with inflammation (principal)
CPT/HCPCS: 99214

== ENCOUNTER → 2023-09-15 09:55 | Outpatient (BNVA) | payer OTHER, SELFPAY | PROVIDERS: Visit Provider Surgery Vascular Surgery | DX: I83.12 Varicose veins of left lower extremity with inflammation (principal) | CPT/HCPCS: 99212 ==

== ENCOUNTER 2024-06-07 15:20 | Outpatient (REF) | payer OTHER, SELFPAY ==
[2024-06-08 11:13] LABS: Mumps Virus IgG Antibody <9.00 AU/mL; Rubeola IgG (Measles) >300.00 AU/mL
[2024-06-11 03:23] LABS: TS Negative Control Passed; TS Panel A 0; TS Panel B 1; TS Positive Control Passed; TSpotTB Negative (Negative)
== END 2024-06-07 15:21 | disposition home or self-care (01) ==
LOC: HO.HHCL 15:20
PROVIDERS: Visit Provider Internal Medicine
DX: Z11.9 Encounter for screening for infectious and parasitic diseases, unspecified (principal)
CPT/HCPCS: 36415; 86481; 86735; 86765

== ENCOUNTER 2024-08-29 10:23 | Outpatient (REF) | payer OTHER, SELFPAY ==
[2024-08-29 11:15] LABS: MANUAL DIFF FLAG NO
[2024-08-29 11:38] LABS: Estimated Average Glucose 117 mg/dL; Hemoglobin A1C 142.8132 umol/L; Hemoglobin A1c % 5.7 % (<6.0)
[2024-08-29 11:43] LABS: Basophils Percent Auto 0.4 % (0-2); Eosinophils Absolute Auto 0.2 X10*3/uL (0.0-0.4); Eosinophils Percent Auto 3.6 % (0-4); Hematocrit 43.4 % (42.0-52.0); Hemoglobin 14.2 g/dl (14.0-18.0); Imm Gran Abs Auto 0.01 X10*3/uL (0.00-0.03); Imm Gran Pct Auto 0.2 % (0.0-0.4); Lymphocytes Percent Auto 22.2 % (20-40); Mean Corpuscular HGB Conc 32.7 g/dl (31.0-36.0); Mean Corpuscular Hemoglobin 27.6 pg (27.0-33.0); Mean Corpuscular Volume 84.3 fL (80.0-98.0); Mean Platelet Volume 13.3 fL (9.4-12.4); Monocytes Absolute Auto 0.2 X10*3/uL (0.1-1.2); Monocytes Percent Auto 5.3 % (2-11); Neutrophils Absolute Auto 3.1 x10*3/uL (2.0-8.3); Neutrophils Percent Auto 68.3 % (45-73); Platelet Count 166 X10*3/uL (160-400); Red Blood Count 5.15 X10*6/uL (4.60-5.80); Red Cell Distribution Width 12.6 % (11.0-16.0); White Blood Count 4.5 X10*3/uL (4.8-10.8)
[2024-08-29 11:59] LABS: Syphilis Screen Nonreactive (Nonreactive)
[2024-08-29 12:01] LABS: Alanine Aminotransferase 35 U/L (0-40); Albumin Level 4.5 g/dL (3.5-5.0); Alkaline Phosphatase 57 U/L (39-117); Anion Gap 10 (12-20); Aspartate Amino Transferase 31 U/L (5-37); Bilirubin Total 0.4 mg/dL (0.0-1.0); Blood Urea Nitrogen 18 mg/dL (9-16); Carbon Dioxide 27 mmol/L (22-29); Chloride 108 mmol/L (96-108); Estimated Glomerular Filt Rate > 60; Glucose Random 101 mg/dL (60-115); Potassium 4.3 mmol/L (3.3-5.1); Sodium 141 mmol/L (135-145); Total Protein 7.3 g/dL (6.5-8.0)
--- OUTSIDE RECORDS SUMMARY | 2024-08-29 12:09 | XMS_ITS | Encounter Summary ---
Author Organization [facility] Address [address] [place] [address] Care Team Providers Care Web Producer Name Role Phone Jade Malik Primary Care Provider Reason for Referral * Consultation (Routine) - Pending Review Specialty Diagnoses / Procedures Referred By Adele luz Referred To Contact Gastroenterology Diagnoses Encounter for screening for malignant neoplasm of colon Jade Malik FNP [address] [place] [address] Phone: tel: fax: Referral ID Status Reason Start Date Expiration Date Visits Requested Visits Authorized [id number] Pending Review Specialty Services Required 08/29/2024 08/29/2025 1 1 Reason for Visit * Reason Comments new patient Encounter Details Date Type Department Care Team ([facility] st Contact Info) Description 08/29/2024 9:30 AM EDT Office Visit [facility] [address] [place] [address] Jade Malik FNP [address] [place] [address] Long Q-T syndrome (Primary Dx); Healthcare maintenance; Dizziness; Encounter for screening for malignant neoplasm of colon; Encounter for immunization Social History Tobacco Use Types Packs/Day Years Used Date Smoking Tobacco: Never Assessed Depression Answer Date Recorded Patient Health Questionnaire-9 Score 2 08/29/2024 Patient Health Questionnaire-9 Score 2 08/29/2024 Last PHQ-9: Questionnaire Data Not on file 0 08/29/2024 Housing Stability Answer Date Recorded What is your housing situation today? I have suki ahuja 08/29/[address] you li ve. Do you have problems with any of the following? None of the above 08/29/2024 Food Insecurity Answer Date Recorded Within the past 12 months, y ou worried that your food would run out before you got money to buy more: Never True 08/29/2024 Within the past 12 months,th e food you bought just didn't last and you didn't have enough money to get more: Never True Transportation Answer Date Recorded In the past 12 months, has l ack of transportation kept you from medical appts, meetings, work or from getting things needed for daily living? No 08/29/2024 Utilities Answer Date Recorded In the past 12 months, has t he electric, gas, oil or water company threatened to shut off services in your home? No 08/29/2024 Depression Answer Date Recorded Patient Health Questionnaire-2 Score 1 08/29/2024 Internet Access Answer Date Recorded Internet Access Q1 Yes 08/29/2024 Internet Access Q2 Not on file 08/29/2024 Sex and Gender Information Value Date Recorded Sex Assigned at Male 03/15/2022 10:17 AM EDT Legal Sex Male 10:17 AM EDT Gender Identity Male 03/15/2022 10:17 AM EDT Sexual Orientation Straight 03/15/2022 10 :17 AM EDT documented as of this encounter Last Filed Vital Signs Vital Sign Reading Time Taken Comments Blood Pressure 125/76 08/29/2024 9:37 AM EDT Pulse 56 08/29/2024 9:37 AM EDT Temperature 36.2 ??C (97.1 ??F) 08/29/2024 9:37 AM ED T Respiratory Rate 14 08/29/2024 9:37 AM EDT Oxygen Saturation 98% 08/29/2024 9:37 AM EDT Inhaled Oxygen Concentration - - Weight 72.1 kg (159 lb) 08/29/2024 9:37 AM EDT Height 165.1 cm (5' 5 ) 08/29/2024 9:37 AM EDT Body Mass Index 26.46 08/29/2024 9:37 AM EDT documented in this encounter Plan of Treatment Pending Results Name Type Priority Associated Diagnoses Date /Time Comprehensive Metabolic Panel Lab Routine Healthcare maintenance 08/29/2024 10:26 AM EDT Scheduled Orders Name Type Priority Associated Diagnoses Orde r Schedule HIV-1/2 Antigen and Antibodies, Fourth Generation, with Reflexes Lab Routine Healthcare maintenance Expected: 08/29/2024 (Approximate), Expires: 08/29/2025 Hepatitis A,B,C Profile Lab Routine Healthcare maintenance Expected: 08/29/2024, Expires: 08/29/2025 TSH W/Reflex to FT4 Lab Routine Dizziness Expected: 08/29/2024 (Approximate), Expires: 08/29/2025 Scheduled Referrals Name Type Priority Associated Diagnoses Order Schedule Referral to Gastroenterology Outpatient Referral Routine Encounter for screening for malignant neoplasm of colon Expected: 08/29/2024 (Approximate), Expires: 08/29/2025 documented as of this encounter Procedures Procedure Name Priority Date/Time Associated Diagnosis Comments SYPHILIS SCREEN Routine 08/29/2024 10:26 AM EDT Healthcare maintenance CBC WITH AUTO DIFFERENTIAL Routine 08/29/2024 10:26 AM EDT Healthcare maintenance PSA, TOTAL Routine 08/29/2024 10:26 AM EDT Healthcare maintenance HEMOGLOBIN A1C Routine 08/29/2024 10:26 AM EDT Healthcare maintenance COMPREHENSIVE METABOLIC PANEL Routine 08/29/2024 10:26 AM EDT Healthcare maintenance documented in this encounter Results * Hemoglobin A1c (08/29/2024 10:26 AM EDT) Hemoglobin A1c 5.7 <6.0 % [facility] Comment:Hemoglobin A1C Refer ence Range Adults: 4.8 - 6.0 % Non diabetic: < 6.0 % Goal: < 7.0 %Additional Action Suggested: > 8.0 %Note: Hemoglobin A1c results are invalid for patients with abnormal amounts of HbF. Blood transfusions may impact the HbA1c concentration in the patient sample. Estimated Average Glucose 117 mg/dL [facility] Comment:eAG = Estimated ave rage glucose which is %A1C expressed asaverage glucose, using the formula of the W2Y-UsetxphAjujgka Glucose study (ADAG), Diabetes Care, Vol.31,#8,2007 Blood Venous blood specimen / Unknown 08/29/2024 10:26 AM EDT 08/29/2024 11:10 AM EDT [facility] BLOOD ORDERABLES Final Re sult Performing Organization Address [facility]/ZIP Co de Phone Number [facility] [address] [place] [address] [phone] * PSA,Total (08/29/2024 10:26 AM EDT) Pathologist [facility] Prostate Specific Antigen 2.80 <0.05 - 4.0 ng/mL [facility] Comment:PSA methodology: Maral De Los Santos i ChemiluminescentMicroparticle Immunoassay (CMIA) Blood Venous blood specimen / Unknown 08/29/2024 10:26 AM EDT 08/29/2024 11:10 AM EDT [facility] BLOOD ORDERABLES Final Re sult Performing Organization Address [facility]/ZIP Co de Phone Number [facility] [address] [place] [address] [phone] * Syphilis Screen (08/29/2024 10:26 AM EDT) Pathologist [facility] Syphilis Screen Nonreactive Nonreactive [facility] Blood 08/29/2024 10:2 6 AM EDT 08/29/2024 11:10 AM EDT [facility] BLOOD ORDERABLES Final Re sult Performing Organization Address [facility] Co de Phone Number [facility] [address] [place] [address] [phone] * (ABNORMAL) CBC auto differential (08/29/2024 10:26 AM EDT) White Blood Count 4.5(L) 4.8 - 10.8 X10*3/uL [facility] Red Blood Count 5.15 4.60 - 5.80 X10*6/uL [facility] Hemoglobin 14.2 14.0 - 18.0 g/dl [facility] Hematocrit 43.4 42.0 - 52.0 % [facility] Mean Corpuscular Volume 84.3 80.0 - 98.0 fL [facility] Mean Corpuscular Hemoglobin 27.6 27.0 - 33.0 pg [facility] Mean Corpuscular HGB Conc 32.7 31.0 - 36.0 g/dl [facility] Red Cell Distribution Width 12.6 11.0 - 16.0 % [facility] Platelet Count 166 160 - 400 X10*3/uL [facility] Mean Platelet Volume 13.3(H) 9.4 - 12.4 fL [facility] Neutrophils Percent Auto 68.3 45 - 73 % [facility] Imm Gran Pct Auto 0.2 0.0 - 0.4 % [facility] Lymphocytes Percent Auto 22.2 20 - 40 % [facility] Monocytes Percent Auto 5.3 2 - 11 % [facility] Eosinophils Percent Auto 3.6 0 - 4 % [facility] Basophils Percent Auto 0.4 0 - 2 % [facility] NRBC Pct Auto 0.0 0.0 - 0.2 /100WBC [facility] Neutrophils Absolute Auto 3.1 2.0 - 8.3 x10*3/uL [facility] Imm Gran Abs Auto 0.01 0.00 - 0.03 X10*3/uL [facility] Lymphocytes Absolute Auto 1.0(L) 1.2 - 4.9 X10*3/uL [facility] Monocytes Absolute Auto 0.2 0.1 - 1.2 X10*3/uL [facility] Eosinophils Absolute Auto 0.2 0.0 - 0.4 X10*3/uL [facility] Basophils Absolute Auto 0.0 0.0 - 0.2 X10*3/uL [facility] NRBC Abs Auto 0.000 0.0 - 0.012 X10*3/uL [facility] Blood Venous blood specimen / Unknown 08/29/2024 10:26 AM EDT 08/29/2024 11:10 AM EDT [facility] BLOOD ORDERABLES Final Re sult [facility] [address] [place] [phone] documented in this encounter Visit Diagnoses Diagnosis Long Q-T syndrome- Primary Long QT syndrome Healthcare maintenance Dizziness Dizziness and giddiness Encounter for screening for malignant neoplasm of colon Encounter for immunization documented in this encounter Additional Health Concerns Assessment Noted Time PHQ-9 Depression Total Score: 2 08/30/19 10:53 AM EDT documented as of this encounter Care Teams Web Producer Relationship Specialty Start Date End Date Jade Malik FNP [address] [place] [phone] PCP - General Family Medicine 05/31/24 documented as of this encounter
--- OUTSIDE RECORDS SUMMARY | 2024-08-29 12:09 | XMS_ITS | Encounter Summary ---
Author Organization [employer] [facility] Address [address] [place] [address] Care Team Providers Care Hybrid Corn Breeder Name Role Phone Jade Malik RADIO HOST Primary Care Provider [phone] Encounter Details Date Type Department Care Team (Latest Contact Info) Description 09/04/2018 Abstract [facility] CONVERSIONS Dental, Provider, DDS Social History Tobacco Use Types Packs/Day Years Used Date Smoking Tobacco: Never Assessed Sex and Gender Information Value Date Recorded Sex Assigned at Male 03/15/2022 10:17 AM EDT Legal Sex Male 10:17 AM EDT Gender Identity Male 03/15/2022 10:17 AM EDT Sexual Orientation Straight 03/15/2022 10 :17 AM EDT documented as of this encounter Plan of Treatment Not on file documented as of this encounter Visit Diagnoses Not on filedocumented in this encounter Care Teams Hybrid Corn Breeder Relationship Specialty Start Date End Date Jade Malik FNP [address] [place] [address] PCP - General Family Medicine 05/31/24 documented as of this encounter
--- OUTSIDE RECORDS SUMMARY | 2024-08-29 12:09 | XMS_ITS | Clinical Summary ---
Author Organization [employer] Address [address] [facility] 7t [place] [address] Care Team Providers Care Blanket Inspector Name Role Phone Jade Malik [facility] Primary Care Provider [phone] Allergies No known active allergies Medications metoprolol succinate XL (Toprol-XL) 25 MG 24 hr tablet Take 25 mg by mouth Once per day. Active rosuvastatin (Crestor) 5 MG tablet Take 5 mg by mouth Once per day. 06/14/2024 Active Active Problems Problem Noted Date Diagnosed Date Long Q-T syndrome 08/29/2024 Benign essential hypertension 03/03/2023 Supraventricular tachycardia 07/24/2021 Encounters Date Type Department Care Team Description 08/29/2024 9:30 AM EDT Office Visit [facility] [address] [place] [phone] [facility] Q-T syndrome (Primary Dx); Healthcare maintenance; Dizziness; Encounter for screening for malignant neoplasm of colon; Encounter for immunization 08/29/2024 Travel 06/07/2024 3:15 PM EST Immunization [facility] [address] [place] [phone] Dory Vera LPN Encounter for immunization (Primary Dx) from Last 3 Months Immunizations Name Administration Dates Next Due Hep A, Adult 05/01/2008,10/20/2007 Hep B, adult 05/01/2008,11/21/2007,10/20/2007 IPV 06/12/2024 Influenza, IIV3, injectable 02/03/2011 Influenza, seasonal, injecta ble, preservative free 06/07/2024 Pfizer Covid-19 Vaccine 12+ 06/07/2024 Pneumococcal Conjugate PCV 20 08/29/2024 TD (adult), 2 Lf tetanus tox oid, preservative free, adsorbed 04/20/2007 Tdap 12/08/2022,05/05/2011 Social History Tobacco Use Types Packs/Day Years [...] Orientation Straight 03/15/2022 10 :17 AM EDT Last Filed Vital Signs Vital Sign Reading [...] Mass Index 26.46 08/29/2024 9:37 AM EDT Plan of Treatment Health Maintenance Due Date Last Done Comments CT Colonography 1973 Colonoscopy 1973 Colorectal Cancer Screening 1973 FIT DNA/Cologuard 1973 FIT 1973 FOBT 1973 HIV Screening 1973 Lipid Panel 1973 Sigmoidoscopy 1973 Tobacco Screening 1985 Family Planning (PISQ) 02/07/1988 Hepatitis C Screening 1991 Zoster Vaccines (1 of 2) 2023 IPV Vaccines (2 of 3 - Adult catch-up series) 07/10/2024 06/12/2024 Alcohol/Substance Use Screening 08/29/2025 08/29/2024 Depression Screening 08/29/2025 08/29/2024, 08/29/2024 SDOH Screening 08/29/2025 08/29/2024 DTaP/Tdap/Td Vaccines (3 - T d or Tdap) 12/08/2032 12/08/2022, 05/05/2011, 04/20/2007 RSV Patients and Patients Aged 60 years or older (1 - 1-dose 75+ series) 02/07/2048 Hepatitis A Vaccines Aged Out 05/01/2008, 10/20/2007 No longer eligible based on patient's age to complete this topic Hepatitis B Vaccines Completed 05/01/2008, 11/21/2007, 10/20/2007 COVID-19 Vaccine Completed 06/07/2024, 10/20/2020, 09/22/2020 Influenza Vaccine Completed 06/07/2024, 02/03/2011 Pneumococcal Vaccine: 50+ Years Completed 08/29/2024 HIB Vaccines Aged Out No longer eligi ble based on patient's age to complete this topic HPV Vaccines Aged Out No longer eligi ble based on patient's age to complete this topic Meningococcal Vaccine Aged Out No marsha mitra eligible based on patient's age to complete this topic RSV under 20 months Aged Out No longe r eligible based on patient's age to complete this topic Rotavirus Vaccines Aged Out No longer eligible based on patient's age to complete this topic Procedures Procedure Name Priority Date/Time Associated Diagnosis Comments HEMOGLOBIN A1C Routine 08/29/2024 10:26 AM EDT Healthcare maintenance PSA, TOTAL Routine 08/29/2024 10:26 AM EDT Healthcare maintenance SYPHILIS SCREEN Routine 08/29/2024 10:26 AM EDT Healthcare maintenance CBC WITH AUTO DIFFERENTIAL Routine 08/29/2024 10:26 AM EDT Healthcare maintenance COMPREHENSIVE METABOLIC PANEL Routine 08/29/2024 10:26 AM EDT Healthcare maintenance from Last 3 Months Results * Syphilis Screen (08/29/2024 10:26 AM EDT) Pathologist [facility] Syphilis Screen Nonreactive Nonreactive [facility] Blood 08/29/2024 10:2 6 AM EDT 08/29/2024 11:10 AM EDT [facility] LAB BLOOD ORDERABLES Final Re sult [facility] [address] [place] [phone] * (ABNORMAL) CBC auto differential (08/29/2024 10:26 AM EDT) Pathologist Jerry White Blood Count 4.5(L) 4.8 - 10.8 X10*3/uL [facility] Red Blood Count 5.15 4.60 - 5.80 X10*6/uL [facility] Hemoglobin 14.2 14.0 - 18.0 g/dl [facility] Hematocrit 43.4 42.0 - 52.0 % [facility] Mean Corpuscular Volume 84.3 80.0 - 98.0 fL [facility] Mean Corpuscular Hemoglobin 27.6 27.0 - 33.0 pg [facility] Mean Corpuscular HGB Conc 32.7 31.0 - 36.0 g/dl [facility] Red Cell Distribution Width 12.6 11.0 - 16.0 % [facility] Platelet Count 166 160 - 400 X10*3/uL [facility] Mean Platelet Volume 13.3(H) 9.4 - 12.4 fL [facility] Neutrophils Percent Auto 68.3 45 - 73 % [facility] Imm Gran Pct Auto 0.2 0.0 - 0.4 % [facility] Lymphocytes Percent Auto 22.2 20 - 40 % [facility] Monocytes Percent Auto 5.3 2 - 11 % [facility] Eosinophils Percent Auto 3.6 0 - 4 % [facility] Basophils Percent Auto 0.4 0 - 2 % [facility] NRBC Pct Auto 0.0 0.0 - 0.2 /100WBC [facility] Neutrophils Absolute Auto 3.1 2.0 - 8.3 x10*3/uL [facility] Imm Gran Abs Auto 0.01 0.00 - 0.03 X10*3/uL [facility] Lymphocytes Absolute Auto 1.0(L) 1.2 - 4.9 X10*3/uL [facility] Monocytes Absolute Auto 0.2 0.1 - 1.2 X10*3/uL [facility] Eosinophils Absolute Auto 0.2 0.0 - 0.4 X10*3/uL [facility] Basophils Absolute Auto 0.0 0.0 - 0.2 X10*3/uL [facility] NRBC Abs Auto 0.000 0.0 - 0.012 X10*3/uL [facility] Blood Venous blood specimen / Unknown 08/29/2024 10:26 AM EDT 08/29/2024 11:10 AM EDT [facility] LAB BLOOD ORDERABLES Final Re sult [facility] [address] [place] [phone] * PSA,Total (08/29/2024 10:26 AM EDT) Prostate Specific Antigen 2.80 <0.05 - 4.0 ng/mL [facility] Comment:PSA methodology: Maral De Los Santos i ChemiluminescentMicroparticle Immunoassay (CMIA) Blood Venous blood specimen / Unknown 08/29/2024 10:26 AM EDT 08/29/2024 11:10 AM EDT [facility] LAB BLOOD ORDERABLES Final Re sult Performing Organization Address [facility]/ZIP Co de Phone Number [facility] [address] [place] [phone] * Hemoglobin A1c (08/29/2024 10:26 AM EDT) Hemoglobin A1c 5.7 <6.0 % [facility] Comment:Hemoglobin A1C Refer ence Range Adults: 4.8 - 6.0 % Non diabetic: < 6.0 % Goal: < 7.0 %Additional Action Suggested: > 8.0 %Note: Hemoglobin A1c results are invalid for patients with abnormal amounts of HbF. Blood transfusions may impact the HbA1c concentration in the patient sample. Estimated Average Glucose 117 mg/dL [facility] Comment:eAG = Estimated ave rage glucose which is %A1C expressed asaverage glucose, using the formula of the Y1L-VtpunoyEihiiyv Glucose study (ADAG), Diabetes Care, Vol.31,#8,Dec. 2007 Blood Venous blood specimen / Unknown 08/29/2024 10:26 AM EDT 08/29/2024 11:10 AM EDT [facility] LAB BLOOD ORDERABLES Final Re sult Performing Organization Address [facility]/ZIP Co de Phone Number [facility] [address] [place] [phone] from Last 3 Months Insurance [facility] [place] Address: [facility] [address] [place] [address] Care Teams Blanket Inspector Relationship Specialty Start Date End Date Jade Malik FNP [address] [place] [phone] PCP - General Family Medicine 05/31/24
--- OUTSIDE RECORDS SUMMARY | 2024-08-29 12:09 | XMS_ITS | Encounter Summary ---
Author Organization [employer] Address [address] [facility] [place] [address] Care Team Providers Care Lehr Attendant Name Role Phone King [facility] Primary Care Provider [phone] Encounter Details Date Type Department Care Team (Latest Contact Info) Description 08/29/2024 Travel Social History Tobacco Use Types Packs/Day Years [...] Diagnoses Not on filedocumented in this encounter Additional Health Concerns Assessment Noted Time PHQ-9 Depression Total Score: 2 08/30/19 10:53 AM EDT documented as of this encounter Care Teams Lehr Attendant Relationship Specialty Start Date End Date Jade Malik FNP [address] [place] [phone] PCP - General Family Medicine 05/31/24 documented as of this encounter
[2024-08-29 12:19] LABS: TSH reflex Free T4 1.56 uIU/mL (0.32-4.0)
[2024-08-30 09:23] LABS: HBS Num1 > 1000.00 mIU/mL (0-7.99); HBc Num1 0.06 S/CO (0.00-0.79); HBsAGNum1 0.41 S/CO (0.00-0.99); HIV AB/AG Nonreactive (Nonreactive); HIV Num 1 0.06 S/CO (0.00-0.99); Hepatitis A Antibody IgM 0.29 Index (0-0.79); Hepatitis B Core Antibody Nonreactive (Nonreactive); Hepatitis B Surface Antigen Negative (Negative); ~Hepatitis A Antibody IgM Nonreactive (Nonreactive); ~Hepatitis B Surface Antibody REACTIVE (Nonreactive); ~Hepatitis C Antibody Nonreactive (Nonreactive)
== END 2024-08-29 10:24 | disposition home or self-care (01) ==
LOC: HO.HHCL 10:23
PROVIDERS: Visit Provider Registered Nurse
DX: Z00.00 Encounter for general adult medical examination without abnormal findings (principal); R42 Dizziness and giddiness; Z11.4 Encounter for screening for human immunodeficiency virus [HIV]; Z13.1 Encounter for screening for diabetes mellitus; Z11.59 Encounter for screening for other viral diseases; Z12.5 Encounter for screening for malignant neoplasm of prostate; Z11.3 Encounter for screening for infections with a predominantly sexual mode of transmission; Z13.29 Encounter for screening for other suspected endocrine disorder
CPT/HCPCS: 36415; 80053; 83036; 84153; 84443; 85025; 86704; 86706; 86709; 86780; 86803; 87340; 87389

== ENCOUNTER 2025-01-31 09:52 | Outpatient (AMB) | payer OTHER, SELFPAY ==
--- NOTE | 2025-01-31 10:07 | A.OFFVIS_ITS ---
Vital Signs 01/31/25 10:13 Height 5 ft 5 in Weight 160 lb BMI 26.6 BP 134/78 Blood Pressure Location Rt brachial Position Sitting Pulse 62 Pulse Source Pulse Oximeter Pulse Oximetry (%) 99 Oxygen Delivery Method Room Air Intake Visit Reasons: Colonoscopy Screening Intake Note: New pt for initial colo screening. CC: Pt denies any GI sx or concerns at this time. No pertinent FMHx. Airborne And Air Delivery Specialist Required: Yes Airborne And Air Delivery Specialist Services: Airborne And Air Delivery Specialist Offered & Declined Accompanied by: Family/Other Allergies No Known Allergies Allergy (Verified 09/15/23 10:03) HPI HPI Colonoscopy Screening: Details: 49-year-old male here for preprocedural meeting to discuss a screening colonoscopy. He is referred by [facility]. PMX High cholesterol Atrial tachycardia Dizziness Long QT syndrome Poor dentition Peripheral vascular disease * SURGICAL HISTORY Varicose vein ablation * ALLERGIES: NKDA * [employer] [facility]: Laboratory Tests 08/29/24 10:26 WBC 4.5 L Hgb 14.2 Hct 43.4 Plt Count 166 Estimated GFR > 60 Total Bilirubin 0.4 AST 31 ALT 35 Alkaline Phosphatase 57 TSH 1.56 TODAY'S VISIT Czech #family member translates per patient request This is his 1st colonoscopy. Bowel or upper GI problems: No Problems with anesthesia or sedation: He is fairly naive to anesthesia and sedation, no problme during VV procedure. Cardiac or respiratory problems: No Infectious disease problems: No Family history of colon cancer or polyps:None Known. [facility] Medical History Right groin pain Tachycardia Social History (Updated 01/31/25 @ 10:10 by CARLIE Barraza) Alcohol intake: never Patient Tobacco Use Status: Never used Tobacco Use of substances other than those prescribed or required for medical reasons: No Review of Systems Const Denies fatigue, Denies fever(s), Denies night sweats, Denies poor appetite and Denies weight loss ENT Reports Normal hearing present, Denies dental pain, Denies dysphagia, Denies hearing loss, Denies mouth pain, Denies odynophagia, Denies throat swelling, Denies tongue swelling and Reports other (Dentition adequate) Card Reports no additional complaints Resp Reports no additional complaints GI Details: Denies abdominal pain, Denies melena, Denies bloating, Denies hematochezia, Denies constipation, Denies GI cramping, Denies dysphagia, Denies excessive flatus, Denies early satiety, Denies heartburn, Denies diarrhea, Denies nausea, Denies odynophagia, Denies vomiting and Denies hematemesis Skin/Breast Denies pruritus, Denies lesions, Denies rash and Denies jaundice Neuro Reports Normal hearing present and Denies Abnormal speech present Endo Denies fatigue Aller/Immun Denies throat swelling and Denies tongue swelling Physical Exam Vital Signs: Last Vital Signs Pulse 62 01/31/25 10:13 BP 134/78 01/31/25 10:13 Pulse Ox 99 01/31/25 10:13 Oxygen Delivery Method Room Air 01/31/25 10:13 BMI result Body Mass Index 26.6 Const General: cooperative, no acute distress, well developed and well groomed Nutritional Appearance: average body habitus and well nourished Orientation/consciousness: oriented to person, oriented to place and oriented to time Limitations: language barrier HEENT Head: Yes normocephalic and Yes atraumatic Eyes General: appearance normal, both eyes and all related structures Pupils: Equal, round and reactive pupils present Neck Neck: Yes normal visual inspection and Yes no lymphadenopathy Thyroid: Thyroid normal Resp Effort & Inspection: normal respiratory effort and able to speak in complete sentences Auscultation: clear to auscultation bilaterally Cardio Rate: regular rate Rhythm: regular rhythm Heart sounds: Normal, physiologic split S2 sound present Peripheral pulses: radial pulses present and posterior tibial pulses present GI Inspection: No distended and No Abdominal panniculus present Palpation (GI): Soft to palpation, nontender, no guarding, not rigid and No hepatosplenomegaly present Percussion: Yes normal to percussion Auscultation: normal bowel sounds Rectal Exam - Male: Yes deferred Skin General skin exam: no rashes or lesions noted, turgor normal, skin not dry, no jaundice, No spider nevi and no striae Rashes: no rashes Nails: normal Neuro General: oriented to person, oriented to place and oriented to time Cranial nerves: Yes Equal, round and reactive pupils present and Yes Normal hearing present Speech: No Abnormal speech present Extrem General: Yes normal to inspection, No clubbing, No cyanosis and No edema Right lower extremity: lower leg (Large VV no edema) Psych Appearance: grossly normal and well kempt Mental Status: mental status grossly normal Speech and movement: Normal speech and movement present Affect: normal affect Attitude: cooperative Thought process: Normal thought process present and not confabulating Thought content: Normal thought content present Insight: Good insight present (Psych) Judgement: Good judgement present (Psych) Assessment & Plan Assessment & Plan (1) Pre-op examination: Code(s): Z01.818 - Encounter for other preprocedural examination Category: Medical Plan Czech #family member translates per patient request This is his 1st colonoscopy. Bowel or upper GI problems: No Problems with anesthesia or sedation: He is fairly naive to anesthesia and sedation, no problme during VV procedure. Cardiac or respiratory problems: No Infectious disease problems: No Family history of colon cancer or polyps:None Known. Orders: Referrals GI Procedure Notification Z01.818 - Encounter for other preprocedural examination Medications: New sodium,potassium,mag sulfates 17.5-3.13-1.6 gram (Suprep Bowel Prep Kit) 480 mL orally; FOR COLONOSCOPY PREP 354 mL 0RF Coding Level of Care Code New Pt Level 3 (96184) Diagnoses Pre-op examination Z01.818
[2025-01-31 10:13] VITALS: BP 134/78; PULSE 62; O2SAT 99; BMI 26.6
--- OUTSIDE RECORDS SUMMARY | 2025-01-31 11:32 | XMS_ITS | Clinical Summary ---
Author Organization [employer] Address [address] [facility] 7t [place] [address] Care Team Providers Care Messenger Copy Name Role Phone King [facility] Primary Care Provider [phone] Allergies No known active allergies Medications metoprolol succinate XL (Toprol-XL) 25 MG 24 hr tablet Take 25 mg by mouth Once per day. Active rosuvastatin (Crestor) 5 MG tablet Take 5 mg by mouth Once per day. 06/14/2024 Active Active Problems Problem Noted Date Diagnosed Date Long Q-T syndrome 08/29/2024 Benign essential hypertension 03/03/2023 Atrial tachycardia 07/24/2021 Immunizations Immunization Administration Dates Next Due Hep A, Adult 05/01/2008,10/20/2007 Hep B, adult 05/01/2008,11/21/2007,10/20/2007 IPV 06/12/2024 Influenza, IIV3, injectable 02/03/2011 Influenza, seasonal, injecta ble, preservative free 06/07/2024 Pfizer Covid-19 Vaccine 12+ 06/07/2024 Pneumococcal Conjugate PCV 20 08/29/2024 TD (adult), 2 Lf tetanus tox oid, preservative free, adsorbed 04/20/2007 Tdap 12/08/2022,05/05/2011 Social History Tobacco Use Types Packs/Day Years Used Date Smoking Tobacco: Never Smokeless Tobacco: Never Tobacco Cessation:Counseling Given: Not Answered Depression Answer Date Recorded Patient Health Questionnaire-9 [...] 56 08/29/2024 9:37 AM EDT Temperature 36.2 C (97.1 F) 08/29/2024 9:37 AM EDT Respiratory Rate 14 08/29/2024 9:37 AM EDT Oxygen Saturation 98% 08/29/2024 9:37 AM EDT Inhaled Oxygen Concentration - - Weight 72.1 kg (159 lb) 08/29/2024 9:37 AM EDT Height 165.1 cm (5' 5 ) 08/29/2024 9:37 AM EDT Body Mass Index 26.46 08/29/2024 9:37 AM EDT Plan of Treatment Upcoming Encounters Date Type Department Care Team (Late st Contact Info) Description 03/11/2025 9:00 AM EDT Office Visit [facility] [address] [place] [address] [facility], [facility] [address] [place] [address] Health Maintenance Due Date Last Done Comments CT Colonography 1973 Colonoscopy 1973 Colorectal Cancer Screening 1973 FIT DNA/Cologuard 1973 FIT 1973 FOBT 1973 Lipid Panel 1973 Sigmoidoscopy 1973 Family Planning (PISQ) 02/07/1988 Zoster Vaccines (1 of 2) 2023 IPV Vaccines (2 of 3 - Adult catch-up series) 07/10/2024 06/12/2024 Influenza Vaccine (#1) 2025 , 02/03/2011 Alcohol/Substance Use Screening 08/29/2025 08/29/2024 Depression Screening 08/29/2025 08/29/2024, 08/29/2024 Diabetes: Hemoglobin A1C 08/29/2025 08/29/2024 Disability Screening 08/29/2025 08/29/2024 SDOH Screening 08/29/2025 08/29/2024 Tobacco Screening 08/31/2025 08/31/2024 DTaP/Tdap/Td Vaccines (3 - T d or Tdap) 12/08/2032 12/08/2022, 05/05/2011, 04/20/2007 RSV Patients and Patients Aged 60 years or older (1 - 1-dose 75+ series) 02/07/2048 Hepatitis A Vaccines Aged Out 05/01/2008, 10/20/2007 No longer eligible based on patient's age to complete this topic Hepatitis B Vaccines Completed 05/01/2008, 11/21/2007, 10/20/2007 COVID-19 Vaccine Completed 06/07/2024, 10/20/2020, 09/22/2020 HIV Screening Completed 08/29/2024 Hepatitis C Screening Completed 08/29/2024 Pneumococcal Vaccine: 50+ Years Completed 08/29/2024 HIB Vaccines Aged Out No longer eligi ble based on patient's age to complete this topic HPV Vaccines Aged Out No longer eligi ble based on patient's age to complete this topic Meningococcal B Vaccine Aged Out No l onger eligible based on patient's age to complete [...] Procedure Name Priority Date/Time Associated Diagnosis Comments HEPATITIS PANEL, GENERAL Routine 08/29/2024 10:26 AM EDT Healthcare maintenance HIV 1/2 ANTIGEN/ANTIBODY, FOURTH GENERATION W/RFL Routine 08/29/2024 10:26 AM EDT Healthcare maintenance HEMOGLOBIN A1C Routine 08/29/2024 10:26 AM EDT Healthcare maintenance from Last 3 Months or Most Recently Relevant to Health Maintenance Results * Hepatitis A,B,C Profile (08/29/2024 10:26 AM EDT) Hepatitis A IgM Nonreactive Nonreactive [facility] Comment:IgM antibodies to BEAVERS V not detected; does not exclude earlyacute or recovered HAV infection. ~Hepatitis B Surface Antibody REACTIVE Nonreactive [facility] Comment:REACTIVE: > 11.99 mI U/mL Hepatitis B Core Antibody Nonreactive Nonreactive [facility] Hepatitis C Antibody Nonreactive Nonreactive [facility] Comment:Antibodies to HCV no t detected; does not exclude early acuteHCV infection. Hepatitis B Surface Ag Negative Negative [facility] Blood Venous blood specimen / Unknown 08/29/2024 10:26 AM EDT 08/29/2024 11:10 AM EDT [facility] LAB BLOOD ORDERABLES Final Re sult [facility] [address] [place] [phone] * HIV-1/2 Antigen and Antibodies, Fourth Generation, with Reflexes (08/29/2024 10:26 AM EDT) HIV AB/AG Nonreactive Nonreactive [facility] Comment:HIV-1 p24 Ag and/or HIV-1/HIV-2 Ab not detected.A test result that is nonreactive does not exclude thepossibility of exposure to or infection with HIV-1 and/orHIV-2. Nonreactive results in this assay for individualswith prior exposure to HIV-1 and/or HIV-2 may be due toantigen and antibody levels that are below the limit ofdetection of this assay.The YozonsniZoji HIV Ag/Ab Combo assay result andsupplemental assay results should be interpreted inconjunction with the patient's clinical presentation,history and other laboratory results. If the results areinconsistent with clinical evidence, additional testing issuggested to confirm the result. Blood Venous blood specimen / Unknown 08/29/2024 10:26 AM EDT 08/29/2024 11:10 AM EDT [facility] LAB BLOOD ORDERABLES Final Re sult [facility] [address] [place] [phone] * Hemoglobin A1c (08/29/2024 10:26 AM EDT) Hemoglobin A1c 5.7 <6.0 % [facility] Comment:Hemoglobin A1C Refer ence Range Adults: 4.8 - 6.0 % Non diabetic: < 6.0 % Goal: < 7.0 %Additional Action Suggested: > 8.0 %Note: Hemoglobin A1c results are invalid for patients with abnormal amounts of HbF. Blood transfusions may impact the HbA1c concentration in the patient sample. Estimated Average Glucose 117 mg/dL [facility] Comment:eAG = Estimated ave rage glucose which is %A1C expressed asaverage glucose, using the formula of the D8Q-QyevikyVwdnfju Glucose study (ADAG), Diabetes Care, Vol.31,#8,Dec. 2007 Blood Venous blood specimen / Unknown 08/29/2024 10:26 AM EDT 08/29/2024 11:10 AM EDT [facility] LAB BLOOD ORDERABLES Final Re sult [facility] [address] [place] [phone] from Last 3 Months or Most Recently Relevant to Health Maintenance Insurance [place] [address] [employer] Care Teams Messenger Copy Relationship Specialty Start Date End Date [place] [facility] [address] [place] [phone] PCP - General Family Medicine 05/31/24
--- OUTSIDE RECORDS SUMMARY | 2025-01-31 11:32 | XMS_ITS | Encounter Summary ---
Author Organization [facility] Address [address] [place] [address] Phone Care Team Providers Care Service Manager Name Role Phone Vivian Murphy MD Primary Care Provide r Reason for Referral * - Pending Review Specialty Diagnoses / Procedures Referred By Contac t Referred To Contact Radiology Diagnoses Left leg pain Procedures US Lower Extremity Arteries (FCO) Physio Complete Bilat Preston Johnson DO Phone: tel: fax: mailto:[email or web address] Referral ID Status Reason Start Date Expiration Date V isits Requested Visits Authorized [id number] Pending Review 06/01/2024 1 1 * - Pending Review Specialty Diagnoses / Procedures Referred By Contac t Referred To Contact Radiology Diagnoses Symptomatic varicose veins of both lower extremities Left leg pain Procedures US Aorta Duplex Complete Preston Johnson DO Phone: tel: fax: mailto:[email or web address] Referral ID Status Reason Start Date Expiration Date V isits Requested Visits Authorized [id number] Pending Review 06/01/2024 1 1 Encounter Details Date Type Department Care Team (Latest Contact Info) Description 06/01/2024 Ancillary [facility] [address] [facility] [facility] [address], [address] [place] [address] Preston Johnson DO [address] [facility] [address] [place] [address] [email or web address] Symptomatic varicose veins of both lower extremities (Primary Dx); Left leg pain Social History Tobacco Use Types Packs/Day Years Used Date Smoking Tobacco: Never Smokeless Tobacco: Never Alcohol Use Standard Drinks/Week Comments Not Currently 0 (1 standard drink = 0.6 oz pur e alcohol) Education Answer Date Recorded Are you interested in more education? Not on karyn e 09/11/2022 Are you concerned about learning? Not on file 09/11/2022 No 09/11/2022 No 09/11/2022 Digital Access Answer Date Recorded No 10/10/2022 No 10/10/2022 Reliable internet access at home? Not on file 10/10/2022 Device with a working camera? Not on file Sex and Gender Information Value Date Recorded Sex Assigned at Not on file Legal Sex Male 9:36 AM EST Gender Identity Not on file Sexual Orientation Not on file documented as of this encounter Plan of Treatment Upcoming Encounters Date Type Department Care Team (Late st Contact Info) Description 04/04/2025 11:00 AM EST Office Visit [facility] [address]rd [facility], [address] [place] [address] Eulalia Garcai, BILINGUAL HR GENERALIST [address] [place] [address] [email or web address] 07/10/2025 9:00 AM EST Office Visit [facility] [address] [facility], [address] [place] [address] Preston Johnson DO [address] [facility] [address] [place] [address] documented as of this encounter Results * US Lower Extremity Arteries (FCO) Physio Complete Bilat (06/01/2024 1:25 PM EST) Arm 130 mmHg Posterior Tibial 170 mmHg Posterior Tibial Index 1.31 Dorsalis Pedis 150 mmHg Dorsalis Pedis Index 1.15 Arm 130 mmHg Posterior Tibial 170 mmHg Posterior Tibial Index 1.31 Dorsalis Pedis 170 mmHg Dorsalis Pedis Index 1.31 Anatomical Region Laterality Modality Ultrasound Narrative 06/02/2024 8:15 AM EST Impression: Normal FCO's with triphasic waveforms. Waveform did not print properly due to machine error. us Preston Johnson DO CV US VASCULAR Final Result * US Aorta Duplex Complete (06/01/2024 1:25 PM EST) Height 165 cm Weight 70 kg Anatomical Region Laterality Modality Aorta Ultrasound Narrative 06/02/2024 8:14 AM EST Impression: No evidence of Aorto-iliac disease. Normal study. Abdominal Aorta AORTA Findings: normal; Aorta: Proximal: 1.9cm; 107 cm/sec Mid: 1.7 cm; 120 cm/sec Distal: 1.6 cm; 87 cm/sec Right Common Iliac Artery: Proximal: 130 cm/sec Distal: 143 cm/sec Right External Iliac Artery: Proximal: 163 cm/sec Mid: 138 cm/sec Distal: 115 cm/sec Left Common Iliac Artery: Proximal: 108 cm/sec Distal: 101 cm/sec Left External Iliac Artery: Proximal: 111 cm/sec Mid: 143 cm/sec Distal: 94 cm/sec Introductory Comments Techniques used for this study included: color flow Doppler and spectral waveform Doppler. Arterial inflow was assessed. us Preston Johnson DO IMG US ABDOMEN Final Result documented in this encounter Visit Diagnoses Diagnosis Symptomatic varicose veins of both lower extremities Left leg pain Pain in soft tissues of limb Symptomatic varicose veins of both lower extremities- Primary Left leg pain Pain in soft tissues of limb documented in this encounter Care Teams Service Manager Relationship Specialty Start Date End Date Vivian Murphy MD [address] [place] [address] PCP - General Internal Medicine 01/07/22 documented as of this encounter Additional Source Comments The information contained in this document represents components of the legal health record. It is not the complete legal health record.[facility]
--- OUTSIDE RECORDS SUMMARY | 2025-01-31 11:32 | XMS_ITS | Encounter Summary ---
Author Organization [facility] Address [address] [place] [phone] Phone Care Team Providers Care Cork Sorter Name Role Phone Vivian Murphy MD Primary Care Provide r Vivian Murphy MD Primary Care Provide r Encounter Details Date Type Department Care Team (Late Contact Info) Description 07/24/2021 Procedure [facility] [address] [place] [address] Social History Tobacco Use Types Packs/Day Years Used Date Smoking Tobacco: Never Smokeless Tobacco: Never Alcohol Use Standard Drinks/Week Comments Not Currently 0 (1 standard drink = 0.6 oz pur e alcohol) Sex and Gender Information Value Date Recorded Sex Assigned at Not on file Legal Sex Male 9:36 AM EST Gender Identity Not on file Sexual Orientation Not on file documented as of this encounter Plan of Treatment Upcoming Encounters Date Type Department Care Team ([facility] Contact Info) Description 04/04/2025 11:00 AM EST Office Visit [facility] [address] [facility], [address] [place] [address] Eulalia Garcia, VEHICLE CARE SPECIALIST [address] [place] [address] 07/10/2025 9:00 AM EST Office Visit [facility] [address] [place] [address] [address] [facility], [address] [place] [address] Preston Johnson, [address] [place] [address] [place] [address] [email or web address] documented as of this encounter Visit Diagnoses Not on filedocumented in this encounter Care Teams Cork Sorter Relationship Specialty Start Date End Date Vivian Murphy MD [address] [place] [address] PCP - General 07/24/21 01/06/22 Vivian Murphy MD [address] [place] [address] PCP - General Internal Medicine 01/07/22 documented as of this encounter Additional Source Comments The information contained in this document represents components of the legal health record. It is not the complete legal health record.[facility]
--- OUTSIDE RECORDS SUMMARY | 2025-01-31 11:32 | XMS_ITS | Clinical Summary ---
Author Organization [facility] Address [address] [facility] [address] [place] [address] Phone Care Team Providers Care Accordion Maker Name Role Phone Vivian Murphy MD Primary Care Provide r Allergies No known active allergies Medications metoprolol succinate (TOPROL-XL) 25 MG 24 hr tabletIndicatio ns:Medication refill Take 1 tablet (25 mg total) by mouth daily. 90 tablet 1 06/14/2024 Active rosuvastatin (CRESTOR) 5 MG tablet Take 1 tablet (5 mg total) by mouth daily. 90 tablet 1 06/14/2024 Active Automated Blood Pressure Kit - M Cuff (Arm circ 22-32 cm/8.6-12.6 in) Use to check blood pressure daily or as directed. 1 kit 01/03/2025 Active Active Problems Problem Noted Date Diagnosed Date Pure hypercholesterolemia 06/14/2024 Assessment & Plan (01/03/2025 11:17 AM EDT): Patient will continue on rosuvastatin 5 mg daily. Recent LDL 66. He will continue with routine lipid panels with PCP. Family history of early CAD 06/14/2024 Bleeding from varicose veins of both lower extre mities 11/21/2023 Assessment & Plan (01/03/2025 11:19 AM EDT): Patient is about a year out from his VenaSeal ablation to his great saphenous vein in his left leg that was done on 03/04/2024. Patient tells me he has had significant relief from this. He is asking me about a right VenaSeal. Patient's ultrasound that was done on 11/03/2023 showed severe bilateral deep and great saphenous vein reflux in bilateral legs. At this time I have for conservative measures with patient and I have handed him a written prescription for compression stockings as he is on his feet for about 12 hours a day. I am also going to order a right venous seal and I have ordered his 1 week status post ultrasound after his VenaSeal. He will see Dr. Johnson afterwards. Assessment & Plan (11/21/2023 8:22 AM EDT): This patient has severe venous varicosities and they have bled in the past I explained risk benefits and alternatives to him regarding a vein ablation which we will do first on the left than on the right Swelling, limb 11/21/2023 Left leg pain 11/21/2023 Assessment & Plan (11/21/2023 8:23 AM EDT): I am also ordering him an arterial study he said he had some procedure done to open one of his arteries which was not successful Hypertriglyceridemia 03/03/2023 Benign essential hypertension 03/03/2023 Assessment & Plan (01/03/2025 11:18 AM EDT): Blood pressure elevated today 144/90. He has not been checking his blood pressure at home. I have sent a cuff for him to do so. Patient educated on HTN pathophysiology, htn medication, importance of low salt DASH heart healthy diet, exercise and home B/P monitoring. Advised if home blood pressure readings are higher than 130/80 to call the office. Patient tells me he has dizziness upon standing too fast. He has not been hydrating very well. I have encouraged him to hydrate well stand slowly from a seated position and wear compression stockings. He also has intermittent episodes of classic vertigo episodes which he tells me he feels as if the room is spinning. No other symptoms with this. I have advised him to follow-up with PCP in regards to these episodes. Assessment & Plan (11/21/2023 8:23 AM EDT): Well-controlled to the guidelines. Other chest pain 03/08/2022 Assessment & Plan (03/08/2022 5:00 PM EDT): Chest pain happened with tachycardia. Asking if he could get ischemic episode with tachycardia I told him that most likely the supraventricular tachycardia is as not related to the ischemia but because of his chest pain we will go ahead and proceed to an elective ETT. Echocardiogram did not show any LV wall motion abnormality Supraventricular tachycardia 07/24/2021 Assessment & Plan (03/08/2022 4:58 PM EDT): Patient has history of supraventricular tachycardia he was seen by technical producer Dr. Armin VELAZQUEZ before here. He had another episode this Tuesday with extra pillow to 3 hours for the tachycardia to terminate. He was only taking 25 mg half tablet daily. Of metoprolol succinate I discussed increasing the dose to 25 mg daily. He and his agreed. I also discussed with him the role of ablation and supraventricular tachycardia. Since I do not have any strips I discussed with him that we might have to do electrophysiology study and then ablate if the tachycardia is diagnosed he understood that. This point he and his would want to give beta beta-maicol or try before we he goes for electrophysiology testing. I gave him a prescription for metoprolol succinate 25 mg p.o. daily he also has asked him to have a 30-day event monitor and this we will have a glimpse of what going on with him. Assessment & Plan (01/07/2022 1:49 PM EDT): No recurrence since starting metoprolol. Even his day to day mild palpitations have essentially resolved. Continue at 12.5 mg daily. Dizziness did not start after starting metoprolol- began after being diagnosed with COVID. I have advised him to follow up with his PCP regarding dizziness. Palpitations 07/24/2021 Assessment & Plan (01/03/2025 11:15 AM EDT): Asymptomatic on exam today. Patient will continue on metoprolol 25 mg daily. Assessment & Plan (11/21/2023 8:23 AM EDT): Gone at this time. Assessment & Plan (03/08/2022 4:59 PM EDT): He has palpitation for long time he has been treated with beta-maicol also for long time. This time his palpitations came back. After long time. We discussed role of increasing the medicine versus ablation at this point he will want to increase her dose of beta-maicol. Also do a 30-day event monitor for diagnosis. Encounters Date Type Department Care Team Description 01/03/2025 10:30 AM EDT Office Visit [facility] [address], [address] [place] [address] Amalia Bustillos DNP [place], [place] Atrial fibrillation, unspecified type (Primary Dx); Edema, unspecified type; Right leg pain; Palpitations; Benign essential hypertension; Bleeding from varicose veins of both lower extremities; Pure hypercholesterolemia 01/03/2025 Telephone [facility] [address], [address] [place] [address] Amalia Bustillos DNP from Last 3 Months Social History Tobacco Use Types Packs/Day Years Used Date Smoking Tobacco: Never Smokeless Tobacco: Never Tobacco Cessation:Counseling Given: Not Answered Alcohol Use Standard Drinks/Week Comments Not Currently [...] on file Sexual Orientation Not on file Last Filed Vital Signs Vital Sign Reading Time Taken Comments Blood Pressure 144/90 01/03/2025 10:32 AM EDT Pulse 64 01/03/2025 10:32 AM EDT Temperature - - Respiratory Rate - - Oxygen Saturation 99% 01/03/2025 10:32 AM EDT Inhaled Oxygen Concentration - - Weight 72.4 kg (159 lb 9.6 oz) 01/03/2025 10:32 AM EDT Height 165.1 cm (5' 5 ) 01/03/2025 10:32 AM EDT Body Mass Index 26.56 01/03/2025 10:32 AM EDT Plan of Treatment Upcoming Encounters Date Type Department Care Team (Late st Contact Info) Description 04/04/2025 11:00 AM EST Office Visit [facility] [address] Floor, [address] [place] [address] Eulalia Garcia, ATTENDING PSYCHIATRIST [address] [place] [address] [email or web address] 07/10/2025 9:00 AM EST Office Visit [facility] [address] Floor, [address] [place] [address] Preston Johnson DO [address] [facility] [address] [place] [address] Health Maintenance Due Date Last Done Comments DEPRESSION SCREENING 1985 HEPATITIS C SCREENING 1991 HIV ONE-TIME SCREENING (18-6 5 YEARS) 1991 SCREENING FOR DIABETES 02/07/2008 COLOGUARD 2018 COLONOSCOPY 2018 COLORECTAL CANCER SCREENING 2018 FIT TEST 2018 FOBT 2018 SIGMOIDOSCOPY 2018 VIRTUAL COLONOSCOPY 2018 PNEUMOCOCCAL VACCINES (50+ years) (1 of 1 - PCV) 2023 ZOSTER VACCINES (1 of 2) 2023 INFLUENZA VACCINE (#1) 2024 COVID-19 VACCINE (1 - 2023-2 5 season) 2025 BLOOD PRESSURE 07/06/2025 01/03/2025 LIPID PANEL 06/13/2029 06/13/2024, 03/05/2024 Adult Td,Tdap Booster 12/08/2032 12/08/2022 , 05/05/2011 SMOKING STATUS SCREENING (On ce After 26 Yrs) Completed 01/03/2025 HEPATITIS A VACCINES Aged Out No long er eligible based on patient's age to complete this topic HIB VACCINES Aged Out No longer eligi ble based on patient's age to complete this topic MENINGOCOCCAL VACCINES (ACWY) Aged Out No longer eligible based on patient's age to complete this topic MENINGOCOCCAL VACCINES (B) Aged Out N o longer eligible based on patient's age to complete this topic Medical Devices Not on file Procedures Procedure Name Priority Date/Time Associated Diagnosis Comments LIPID PANEL Routine 06/13/2024 9:07 AM EST Hypertriglyceridemia from Last 3 Months or Most Recently Relevant to Health Maintenance Results * (ABNORMAL) Lipid panel (06/13/2024 9:07 AM EST) HDL 39 mg/dL [facility] Comment: Interpretation <40 mg/dL: Low HDL cholesterol (major risk factor for CHD) Greater than or equal to 60 mg/dL: High HDL cholesterol ( negative risk factor for CHD) HDL - cholesterol is affected by a number of factors, e.g. smoking, excerise, hormones, sex and age. CHOLESTEROL 130 0 - 240 mg/dL [facility] TRIGLYCERIDES 126 30 - 160 mg/dL [facility] LDL 66 50 - 129 mg/dL [facility] Comment: LDL levels in terms of risk for coronary heart disease: <100 mg/dL: Optimal 100-129 mg/dL: Near or above optimal 130-159 mg/dL: Borderline high 160-189 mg/dL: High >190 mg/dL: Very High CARDIAC RISK RATIO 3.3(L) 3.4 - 5.0 [facility] Blood 06/13/2024 9:07 AM EST 06/13/2024 9:08 AM EST us Nathan Wagner MD LAB BLOOD ORDERABLES Fin al Result [facility] [address] [place] [address] from Last 3 Months or Most Recently Relevant to Health Maintenance Insurance WELLSENSE NON NSPG PCP SILVER CLARITY CONNECTORCARE WELLSENSE NON NSPG PCP SILVER CLARITY CONNECTORCARE WELLSENSE NON NSPG PCP SILVER CLARITY CONNECTORCARE WELLSENSE NON NSPG PCP SILVER CLARITY CONNECTORCARE WELLSENSE NON NSPG PCP SILVER CLARITY CONNECTORCARE WELLSENSE NON NSPG PCP SILVER CLARITY CONNECTORCARE WELLSENSE NON NSPG PCP SILVER CLARITY CONNECTORCARE FULKS RUNENSE NON NSPG PCP SILVER CLARITY CONNECTORCARE FULKS RUNENSE NON NSPG PCP SILVER CLARITY CONNECTORCARE Care Teams Accordion Maker Relationship Specialty Start Date End Date Vivian Murphy MD [address] [place] [address] PCP - General Internal Medicine 01/07/22 Additional Source Comments The information contained in this document represents components of the legal health record. It is not the complete legal health record.[facility]
--- OUTSIDE RECORDS SUMMARY | 2025-01-31 11:32 | XMS_ITS | Encounter Summary ---
Author Organization [facility] Address [address] [facility] [address] [place] [address] Phone Care Team Providers Care Maintenance Journeyman Name Role Phone Vivian Murphy MD Primary Care Provide r Encounter Details Date Type Department Care Team (Latest Contact Info) Description 11/21/2023 Transcribe Orders [facility] [address] [facility] 3rd Floor, [address] [place], [place] [id number] Preston Johnson DO [address] [facility] [address] [place] [address] [email or web address] Left leg pain (Primary Dx); Bleeding from varicose veins of both lower extremities Social History Tobacco Use Types Packs/Day Years [...] Upcoming Encounters Date Type Department Care Team ( Contact Info) Description 04/04/2025 11:00 AM EST Office Visit [facility] [address] 3[address], [address] [place] [address] Eulalia Garcia, BANKING MANAGEMENT CONSULTING MANAGER [address] [place] [address] 07/10/2025 9:00 AM EST Office Visit [facility] [address] 3[address] Floor, [address] [place] [address] Preston Jonhson DO [address] [facility] [address] [place] [address] [email or web address] documented as of this encounter Results * ENDOVENOUS ABLATION CHEMICAL ADHESIVE (LEFT) INITIAL (03/06/2024 10:45 AM EDT) Anatomical Region Laterality Modality Hip Left, Thigh Left, Knee L eft, Leg Left, Ankle Left, Foot Left Ultrasound Narrative 03/06/2024 1:09 PM EDT Venaseal procedure: successful endovenous ablation of the Great saphenous vein in the Left leg using cyanoacrylate therapy with no complications. Start time: 1010 End time: 1035 Length treated 35 cm. Volume of cyanocrylate 3 cc. Time out initiated with extremity already marked. The patient was sent home with care instructions and set up with a post treatment evaluation ultrasound in one week. Impression: Successful left great saphenous vein ablation with the VenaSeal system. Introductory Comments Techniques used for this study included: color flow Doppler and spectral waveform Doppler. us Preston Johnson DO CV US VASCULAR Final Result documented in this encounter Visit Diagnoses Diagnosis Left leg pain- Primary Pain in soft tissues of limb Bleeding from varicose veins of both lower extremities Left leg pain Pain in soft tissues of limb documented in this encounter Care Teams Maintenance Journeyman Relationship Specialty Start Date End Date Vivian Murphy MD [address] [place] [phone] PCP - General Internal Medicine 01/07/22 documented as of this encounter Additional Source Comments The information contained in this document represents components of the legal health record. It is not the complete legal health record.[facility]
--- OUTSIDE RECORDS SUMMARY | 2025-01-31 11:32 | XMS_ITS | Encounter Summary ---
Author Organization [employer] [facility] Address [address] [facility] 7 [place] [address] Care Team Providers Care Biotech Production Specialist Name Role Phone Jade Malik [facility] Primary Care Provider [phone] Encounter Details Date Type Department Care Team (Latest Contact Info) Description 09/04/2018 Abstract [facility] Dental, Provider, DDS Social History Tobacco [...] Description 03/11/2025 9:00 AM EDT Office Visit [facility] [address] [place] [address] [facility] [address] [place] [address] documented as of this encounter Visit Diagnoses Not on filedocumented in this encounter Care Teams Biotech Production Specialist Relationship Specialty Start Date End Date [facility] [address] [place] [address] PCP - General Family Medicine 05/31/24 documented as of this encounter
== END 2025-01-31 10:34 | disposition home or self-care (01) ==
LOC: HO.HGI 09:52
PROVIDERS: Visit Provider Nurse Practitioner
DX: Z01.818 Encounter for other preprocedural examination (principal); Z12.11 Encounter for screening for malignant neoplasm of colon
CPT/HCPCS: 99203

== ENCOUNTER → 2025-01-31 09:52 | Outpatient (BNVA) | payer OTHER, SELFPAY | PROVIDERS: Visit Provider Nurse Practitioner | DX: Z01.818 Encounter for other preprocedural examination (principal) | CPT/HCPCS: 99202 ==

== ENCOUNTER 2025-03-11 09:42 | Outpatient (REF) | payer OTHER, SELFPAY ==
--- OUTSIDE RECORDS SUMMARY | 2025-03-11 09:00 | XMS_ITS | Encounter Summary ---
Author Organization [employer] Address [address] [facility] 7t [place] [address] Care Team Providers Care Wedding Cake Designer Name Role Phone Jade Malik [facility] Primary Care Provider [phone] Reason for Visit * Reason Comments Follow-up Encounter Details Date Type Department Care Team ([facility] st Contact Info) Description 03/11/2025 9:00 AM EDT Office Visit [facility] [address], [place] [phone] [facility] [address] [place], [place] [phone] Healthcare maintenance (Primary Dx) Social History Tobacco Use Types Packs/Day Years Used Date Smoking Tobacco: Never Smokeless Tobacco: Never Tobacco Cessation:Counseling Given: Not Answered Depression Answer Date Recorded Patient Health Questionnaire-9 Score 0 03/11/2025 Patient Health Questionnaire-9 Score 0 03/11/2025 Last PHQ-9: Questionnaire Data Not on file 1 Housing Stability Answer Date Recorded What is [...] Answer Date Recorded Patient Health Questionnaire-2 Score 0 03/11/2025 Internet Access Answer Date Recorded Internet Access [...] Sign Reading Time Taken Comments Blood Pressure 120/82 03/11/2025 8:48 AM EDT Pulse 84 03/11/2025 8:48 AM EDT Temperature 36.6 C (97.8 F) 03/11/2025 8:48 AM EDT Respiratory Rate 18 03/11/2025 8:48 AM EDT Oxygen Saturation - - Inhaled Oxygen Concentration - - Weight 74.8 kg (164 lb 12.8 oz) 03/11/2025 8:48 AM EDT Height 165.1 cm (5' 5 ) 03/11/2025 8:48 AM EDT Body Mass Index 27.42 03/11/2025 8:48 AM EDT documented in this encounter Functional Status * Over the past 2 weeks, how often have you been bothered by any of the following problems? Question Answer Date of Assessment Author Patient Health Questionnaire-2 Score 0 03/11/2025 8:54 AM EDT Unique Ying [place] * Little interest or pleasure in doing things Answer Date of Assessment Author Not at all 03/11/2025 8:54 AM EDT Unique Zavala MA * Feeling down, depressed, or hopeless Answer Date of Assessment Author Not at all 03/11/2025 8:54 AM EDT Unique Zavala [place] * Trouble falling or staying asleep, or sleeping too much Answer Date of Assessment Author Not at all 03/11/2025 8:54 AM EDT Unique Zavala [place] * Feeling tired or having little energy Answer Date of Assessment Author Not at all 03/11/2025 8:54 AM Unique Arevalo [place] * Poor appetite or overeating Answer Date of Assessment Author Not at all 03/11/2025 8:54 AM Unique Arevalo [place] * Feeling bad about yourself - or that you are a failure or have let yourself or your family down Answer Date of Assessment Author Not at all 03/11/2025 8:54 AM Unique Arevalo [place] * Trouble concentrating on things, such as reading the newspaper or watching television Answer Date of Assessment Author Not at all 03/11/2025 8:54 AM Unique Arevalo MA * Moving or speaking so slowly that other people could have noticed? Or the opposite - being so fidgety or restless that you have been moving around a lot more than usual. Answer Date of Assessment Author Not at all 03/11/2025 8:54 AM Unique Arevalo MA * Thoughts that you would be better off or hurting yourself in some way Answer Date of Assessment Author Not at all 03/11/2025 8:54 AM Unique Arevalo [place] * Patient Health Questionnaire-9 Score Answer Date of Assessment Author 0 03/11/2025 8:54 AM Unique Arevalo MA * Over the last 2 weeks, how often have you been bothered by any of the following problems? Question Answer Date of Assessment Author Feeling nervous, anxious, or on edge 0 03/11/2025 8:54 AM Unique Best MA Not being able to stop or control worrying 0 03/11/2025 8:54 AM Unique Best MA Worrying too much about different things 0 03/11/2025 8:54 AM Unique Best MA Trouble relaxing 0 03/11/2025 8:54 AM Unique Miranda MA Being so restless that it is hard to sit still 0 03/11/2025 8:54 AM EDT Unique Ying MA Becoming easily annoyed or irritable 0 03/11/2025 8:54 AM EDT Unique Ying MA Feeling afraid as if something awful might happen 0 03/11/2025 8:54 AM EDT Unique Jasso MA CAROLE-7 Total Score 0 03/11/2025 8:54 AM EDT Unique Ying [place] documented as of this encounter Plan of Treatment Scheduled Orders Name Type Priority Associated Diagnoses Orde r Schedule Lipid Panel, Standard Lab Routine Healthcare maintenance Expected: 03/11/2025 (Approximate), Expires: 03/11/2026 documented as of this encounter Visit Diagnoses Diagnosis Healthcare maintenance- Primary documented in this encounter Additional Health Concerns Assessment Noted Time PHQ-9 Depression Total Score: 0 03/11/20 8:54 AM EDT documented as of this encounter Care Teams Wedding Cake Designer Relationship Specialty Start Date End Date Jade Malik FNP [address] [place] [phone] PCP - General Family Medicine 05/31/24 documented as of this encounter
--- OUTSIDE RECORDS SUMMARY | 2025-03-11 11:03 | XMS_ITS | Encounter Summary ---
Author Organization [employer] [facility] Address [address] [facility] 7 [place] [address] Care Team Providers Care Ceramic Chemist Name Role Phone Jade Malik [facility] Primary Care Provider [phone] Encounter Details Date Type Department Care Team (Latest Contact Info) Description 09/04/2018 Abstract [facility] CONVERSIONS Dental, Provider, DDS Social History Tobacco [...] on filedocumented in this encounter Care Teams Ceramic Chemist Relationship Specialty Start Date End Date Jade Malik FNP [address] [place] [phone] PCP - General Family Medicine 05/31/24 documented as of this encounter
--- OUTSIDE RECORDS SUMMARY | 2025-03-11 11:03 | XMS_ITS | Clinical Summary ---
Author Organization [employer] Address [address] [facility] [address] [place] [address] Care Team Providers Care Boot Trimmer Name Role Phone [facility] Primary Care Provider Allergies No known active allergies Medications metoprolol succinate XL (Toprol-XL) 25 MG 24 hr tablet Take 25 mg by mouth Once per day. Active rosuvastatin (Crestor) 5 MG tablet Take 5 mg by mouth Once per day. 06/14/2024 Active Active Problems Problem Noted Date Diagnosed Date Long Q-T syndrome 08/29/2024 Benign essential hypertension 03/03/2023 Atrial tachycardia 07/24/2021 Encounters Date Type Department Care Team Description 03/11/2025 9:00 AM EDT Office Visit [facility] [address] [place] [phone] KingJade [facility] Healthcare maintenance (Primary Dx) 03/11/2025 Travel 03/08/2025 Telephone [facility] [address] [place] [phone] Coy [facility] chart prep from Last 3 Months Immunizations Immunization Administration Dates Next Due Hep [...] 18 03/11/2025 8:48 AM EDT Oxygen Saturation 98% 08/29/2024 9:37 AM EDT Inhaled Oxygen Concentration - - Weight 74.8 kg (164 lb 12.8 oz) 03/11/2025 8:48 AM EDT Height 165.1 cm (5' 5 ) 03/11/2025 8:48 AM EDT Body Mass Index 27.42 03/11/2025 8:48 AM EDT Plan of Treatment Health Maintenance [...] , 02/03/2011 Alcohol/Substance Use Screening 08/29/2025 08/29/2024 Diabetes: Hemoglobin A1C 08/29/2025 08/29/2024 Disability Screening 08/29/2025 08/29/2024 SDOH Screening 08/29/2025 08/29/2024 Depression Screening 03/11/2026 03/11/2025, 03/11/2025 Tobacco Screening 03/11/2026 03/11/2025 DTaP/Tdap/Td Vaccines (3 - T d or [...] AM EDT) Hepatitis A IgM Nonreactive Nonreactive [facility] Comment:IgM antibodies to BEAVERS V not detected; does not exclude earlyacute or recovered HAV infection. ~Hepatitis B Surface Antibody REACTIVE Nonreactive [facility] Comment:REACTIVE: > 11.99 mI U/mL Hepatitis B Core Antibody Nonreactive Nonreactive [facility] Hepatitis C Antibody Nonreactive Nonreactive [facility] Comment:Antibodies to HCV no t detected; does not exclude early acuteHCV infection. Hepatitis B Surface Ag Negative Negative [facility] Blood Venous blood specimen / Unknown 08/29/2024 10:26 AM EDT 08/29/2024 11:10 AM EDT [facility] LAB BLOOD ORDERABLES Final Re sult [facility] [address] [place] [phone] * HIV-1/2 Antigen and Antibodies, Fourth Generation, with Reflexes (08/29/2024 10:26 AM EDT) HIV AB/AG Nonreactive Nonreactive [facility] Comment:HIV-1 p24 Ag and/or HIV-1/HIV-2 Ab not detected.A test result that is nonreactive does not exclude thepossibility of exposure to or infection with HIV-1 and/orHIV-2. Nonreactive results in this assay for individualswith prior exposure to HIV-1 and/or HIV-2 may be due toantigen and antibody levels that are below the limit ofdetection of this assay.The BooRah HIV Ag/Ab Combo assay result andsupplemental assay results should be interpreted inconjunction with the patient's clinical presentation,history and other laboratory results. If the results areinconsistent with clinical evidence, additional testing issuggested to confirm the result. Blood Venous blood specimen / Unknown 08/29/2024 10:26 AM EDT 08/29/2024 11:10 AM EDT [facility] LAB BLOOD ORDERABLES Final Re sult [facility] [address] [place] [phone] * Hemoglobin A1c (08/29/2024 10:26 AM EDT) Hemoglobin A1c 5.7 <6.0 % [facility] Comment:Hemoglobin A1C Refer ence Range Adults: 4.8 - 6.0 % Non diabetic: < 6.0 % Goal: < 7.0 %Additional Action Suggested: > 8.0 %Note: Hemoglobin A1c results are invalid for patients with abnormal amounts of HbF. Blood transfusions may impact the HbA1c concentration in the patient sample. Estimated Average Glucose 117 mg/dL [facility] Comment:eAG = Estimated ave rage glucose which is %A1C expressed asaverage glucose, using the formula of the V2V-CvijbbcKzrgejm Glucose study (ADAG), Diabetes Care, Vol.31,#8,2007 Blood Venous blood specimen / Unknown 08/29/2024 10:26 AM EDT 08/29/2024 11:10 AM EDT [facility] LAB BLOOD ORDERABLES Final Re sult [facility] [address] [place] [phone] from Last 3 Months or Most Recently Relevant to Health Maintenance [place] [address] [place] [address] [employer] Care Teams Boot Trimmer Relationship Specialty Start Date End Date KingJade sparrow FNP [address] [place] [phone] PCP - General Family Medicine 05/31/24
--- OUTSIDE RECORDS SUMMARY | 2025-03-11 11:03 | XMS_ITS | Encounter Summary ---
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 Name Role Phone Jade Malik [facility] Primary Care Provider [phone] Encounter Details Date Type Department Care Team (Latest Contact Info) Description 03/11/2025 Travel Social History Tobacco Use Types Packs/Day Years Used Date Smoking Tobacco: Never Smokeless Tobacco: Never Depression Answer Date Recorded Patient Health Questionnaire-9 [...] AM EDT documented as of this encounter Functional Status * Over the [...] 8:54 AM EDT Unique Zavala MA * Poor appetite or overeating Answer Date of Assessment Author Not at all 03/11/2025 8:54 AM EDT Unique Zavala [place] * Feeling bad about yourself - or that you are a failure or have let yourself or your family down Answer Date of Assessment Author Not at all 03/11/2025 8:54 AM EDT Unique Zavala MA * Trouble concentrating on things, such as reading the newspaper or watching television Answer Date of Assessment Author Not at all 03/11/2025 8:54 AM CHANELLT Unique Zavala MA * Moving or speaking so slowly [...] 8:54 AM EDT Unique Zavala MA * Patient Health Questionnaire-9 Score Answer Date of Assessment Author 0 03/11/2025 8:54 AM EDT Unique Zavala MA * Over the last 2 weeks, how often have you been bothered by any of the following problems? Question Answer Date of Assessment Author Feeling nervous, anxious, or on edge 0 03/11/2025 8:54 AM EDT Unique Ying MA Not being able to stop or control worrying 0 03/11/2025 8:54 AM EDT Unique Ying MA Worrying too much about different things 0 03/11/2025 8:54 AM EDT Unique Ying MA Trouble relaxing 0 03/11/2025 8:54 AM EDT Unique Wing MA Being so restless that it is [...] documented as of this encounter Care Teams Lockstitch Lining Maker Relationship Specialty Start Date End Date Jade Malik FNP [address] [place] [phone] PCP - General Family Medicine 05/31/24 documented as of this encounter
[2025-03-11 12:06] LABS: Cholesterol 169 mg/dL (<200); HDL Cholesterol 37 mg/dL (>40); Triglycerides 125 mg/dL (<150)
== END 2025-03-11 09:43 | disposition home or self-care (01) ==
LOC: HO.HHCL 09:42
PROVIDERS: PCP Registered Nurse; Visit Provider Registered Nurse
DX: Z00.00 Encounter for general adult medical examination without abnormal findings (principal)
CPT/HCPCS: 36415; 80061